=== PATIENT | female | born 1990 | race African-American/Black ===

== ENCOUNTER 2017-08-19 20:14 | Emergency (ER) | payer OTHER, BC ==
[2017-08-19] MEDS: oxyCODONE/APAP 5/325 1 TAB TABLET PO (21:07)
== END 2017-08-19 21:50 | disposition home or self-care (01) ==
LOC: ER 20:14
DX: S43.402A Unspecified sprain of left shoulder joint, initial encounter (principal); W17.89XA Other fall from one level to another, initial encounter; Y93.89 Activity, other specified; Y99.8 Other external cause status; Y92.89 Other specified places as the place of occurrence of the external cause
CPT/HCPCS: 73030; 99284

== ENCOUNTER → 2017-09-10 | Outpatient (CLI) | payer BC | END | disposition home or self-care (01) | LOC: KCIC MRI 08:31 | DX: M75.82 Other shoulder lesions, left shoulder (principal); R60.0 Localized edema | CPT/HCPCS: 73221 ==

== ENCOUNTER 2021-06-01 12:17 | Emergency (ER) | payer SELFPAY ==
[~2021-06-01] VITALS: Ht 165.1 cm; Wt 72.2 kg
[~2021-06-01 12:17] MED LIST: AMOX1TAB61 PO; HYDR-3164 PO; IBUP-1060 PO; METO10TA81 PO
[2021-06-01 12:28] VITALS: BP 132/69
[2021-06-01] MEDS ORDERED: IBUPROFEN 200 MG TABLET. PO ONE (12:30)
--- NOTE | 2021-06-01 12:30 | PHYS DOC ---
Past Medical History Past Medical History: No Pertinent History Past Surgical History: No Surgical History Smoking Status: Never Smoker Alcohol Use: None Drug Use: None General Adult EDM: Chief Complaint: LOWER EXT PAIN HPI: HPI: Patient is a 31 year old female who presents with right foot/ankle pain. 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 No issues during the class. No specific injury. Approximately 1 hour following her class started having pain. Worse with weightbearing. Worse with movement of the ankle. Points to the area of the talus for the area of most pain. Has tried ice and Tylenol. Review of Systems: Review of Systems: Constitutional: Denies fever or chills. [] HENT: Denies nasal congestion or sore throat. [] Respiratory: Denies cough or shortness of breath. [] Musculoskeletal: Reports right foot/ankle pain Integument: Denies rash. [] Heart Score: C/O Chest Pain: No Allergies: Allergies: Allergies Coded Allergies Type Severity Reaction Last Updated Verified No Known Allergies Allergy Unknown 10/19/15 Yes Physical Exam: PE: Constitutional: Well developed, well nourished, no acute distress, non-toxic appearance. [] HENT: Normocephalic, atraumatic Cardiovascular:Heart rate regular rhythm, no murmur [] Lungs & Thorax: Regular work of breathing Skin: Warm, dry, no erythema, no rash. [] Extremities: Right ankle with point tenderness over the talus. Pain with LA OM/AROM of the ankle. She is able to fully range ankle, albeit with pain. No tenderness over the distal malleoli. No tenderness over the calcaneus, midfoot, metatarsals, or phalanges. No significant edema. Mild redness where icepack was in place. Neurologic: Alert and oriented X 3, normal motor function, normal sensory function, no focal deficits noted. [] EKG: EKG: [] Radiology/Procedures: Radiology/Procedures: [] Impression: [facility] [address] [place] [address] IMAGING REPORT Signed PATIENT: DORIS OVALLE ACCOUNT: [id number] : 1990 LOCATION: ER AGE: 31 SEX: F EXAM STATUS: REG ER ORD. PHYSICIAN: SHELLY JONES MD REASON: talar pain, aggravated in dance class PROCEDURE: FOOT RIGHT 3V Study: 1. XR EXAM OF ANKLE_RIGHT 3VIEWS 2. XR FOOT_RIGHT 3 VIEWS Indication: Talar pain. Comparison: 05/26/2019 Findings: Right ankle: Symmetric ankle mortise. Intact malleoli. Unremarkable talar dome. Maintained ankle joint space height. Unremarkable soft tissues. Right foot: Chronic ossific fragment at the dorsum of the talonavicular joint. Maintained alignment at the subtalar joint. No coalition. Tiny Achilles insertion enthesophyte. No radiographic evidence for a stress fracture. Small multipartite os peroneum. Maintained joint spaces. There may be mild hallux valgus but a ssessment is limited without weightbearing. Impression: Right ankle and right foot: No acute osseous abnormality or significant arthrosis. Electronically signed by: YAMILE LARSON MD (06/01/2021 1:10 PM) [id number] DICTATED and SIGNED BY: YAMILE LARSON MD DATE: 06/01/21 [id number] 0 Course & Med Decision Making: Course & Med Decision Making Pertinent Labs and Imaging studies reviewed. 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 Pain seems to be located to tenderness over the talus. Plain films of the foot/ankle were negative. Given location low suspicion for lisfranc or other occult fracture. Given HENRRY wrap and crutches. Tylenol/ibuprofen and PCP f/u. Trang Disclaimer: Trang Disclaimer: This electronic medical record was generated, in whole or in part, using a voice recognition dictation system. Departure Departure Impression: Primary Impression: Right ankle pain Disposition: HOME / SELF CARE / HOMELESS Condition: STABLE Referrals: CRISS RHODES SOLE PAINTER (PCP) Schedule an appointment if you are still having pain on Thursday. Patient Instructions: Ankle Sprain Additional Instructions: For pain tylenol and ibuprofen are best used on a schedule. Please alternate between the two. -Tylenol 1000 mg every 6 hours (do not exceed 4000 mg in one day) -Ibuprofen 400 mg every 6 hours. Take with food. Do not take for more than 1 week. Please keep the ankle wrapped with an Henrry bandage. Use crutches as needed. As soon as you feel like you can bear weight you can start to do this. Please follow-up with your PCP if your symptoms persist. SHELLY JONES MD Jun 01, 2021 12:30
--- NOTE | 2021-06-01 13:12 | RAD ---
Study: 1. XR EXAM OF ANKLE_RIGHT 3VIEWS 2. XR FOOT_RIGHT 3 VIEWS Indication: Talar pain. Comparison: 05/26/2019 Findings: Right ankle: Symmetric ankle mortise. Intact malleoli. Unremarkable talar dome. Maintained ankle joint space heigh t. Unremarkable soft tissues. Right foot: Chronic ossific fragment at the dorsum of the talonavicular joint. Maintained alignment at the subtal ar joint. No coalition. Tiny Achilles insertion enthesophyte. No radiographic evidence for a stress f racture. Small multipartite os peroneum. Maintained joint spaces. There may be mild hallux valgus but assessment is limited without weightbearing. Impression: Right ankle and right foot: No acute osseous abnormality or significant arthrosis. Electronically signed by: YAMILE LARSON MD (06/01/2021 1:10 PM) [id number]
== END 2021-06-01 13:13 | disposition home or self-care (01) ==
LOC: ER 12:17
DX: M25.571 Pain in right ankle and joints of right foot (principal)
CPT/HCPCS: 73610; 73630; 99284

== ENCOUNTER 2021-08-01 09:05 | Inpatient (IN) | payer SELFPAY ==
[~2021-08-01] VITALS: Ht 165.1 cm; Wt 79.2 kg
[2021-08-01] MEDS ORDERED: IV NORMAL SALINE 1000ML BAG 1,000 ML IV ONE (09:30)
--- NOTE | 2021-08-01 09:30 | PHYS DOC ---
Past Medical History Past Medical History: No Pertinent History Past Surgical History: No Surgical History Smoking Status: Never Smoker Alcohol Use: None Drug Use: None Adult General Chief Complaint Chief Complaint: ABDOMINAL PAIN HPI HPI Patient is a 31 year old female presenting to the emergency department for evaluation of abdominal pain fevers chills nausea vomiting and dysuria. She says for the past 2 weeks she has had abdominal pain and dysuria and has been taking Azo but she felt her symptoms were not getting better and presented to the urgent care today and reportedly they checked her urine and it was normal and told her she needs to come to the emergency department to be evaluated for appendicitis. Patient says her fever was 102 this morning. Her emesis is nonbloody nonbilious and she denies any diarrhea. The abdominal pain is diffuse worse on the right side and crampy with no radiation. She denies any vaginal bleeding or vaginal discharge. She denies any prior abdominal surgeries and is unsure if she is . She is in no acute distress with normal vital signs. Review of Systems Review of Systems Constitutional: + fever, chills [] Eyes: Denies change in visual acuity, redness, or eye pain [] HENT: Denies nasal congestion or sore throat [] Respiratory: Denies cough or shortness of breath [] Cardiovascular: No additional information not addressed in HPI [] GI: + abdominal pain, nausea, vomiting. No bloody stools or diarrhea [] : + dysuria, hematuria [] Musculoskeletal: Denies back pain or joint pain [] Integument: Denies rash or skin lesions [] Neurologic: Denies headache, focal weakness or sensory changes [] All other systems were reviewed and found to be within normal limits, except as documented in this note. Current Medications Current Medications Current Medications Medications (Trade) Dose Ordered Sig/Hortencia Start Time Stop Time Status Last Admin Dose Admin Ceftriaxone Sodium (Rocephin) 2 gm 1X ONCE 08/01/21 12:00 08/01/21 12:01 DC 08/01/21 12:01 2 GM Info (CONTRAST GIVEN -- Rx MONITORING) 1 each PRN DAILY PRN 08/01/21 11:00 08/03/21 10:59 Iohexol (Omnipaque 300 Mg/ml) 75 ml 1X ONCE 08/01/21 11:00 08/01/21 11:01 DC 08/01/21 10:55 75 ML Ketorolac Tromethamine (Toradol 15mg Vial) 15 mg 1X ONCE 08/01/21 12:00 08/01/21 12:03 DC 08/01/21 12:16 15 MG Morphine Sulfate (Morphine Sulfate) 4 mg PRN Q2HR PRN 08/01/21 12:15 08/02/21 12:14 Ondansetron HCl (Zofran) 4 mg PRN Q8HRS PRN 08/01/21 12:15 08/02/21 12:14 Sodium Chloride 1,000 ml @ 1,000 mls/hr 1X ONCE 08/01/21 09:30 08/01/21 10:29 DC 08/01/21 09:33 1,000 MLS/HR Allergies Allergies Allergies Coded Allergies Type Severity Reaction Last Updated Verified No Known Allergies Allergy Unknown 06/01/21 Yes Physical Exam Physical Exam Constitutional: Well developed, well nourished, no acute distress, non-toxic appearance. [] HENT: Normocephalic, atraumatic, bilateral external ears normal, oropharynx moist, no oral exudates, nose normal. [] Eyes: PERRLA, EOMI, conjunctiva normal, no discharge. [] Neck: Normal range of motion, no tenderness, supple, no stridor. [] Cardiovascular:Heart rate regular rhythm, no murmur [] Lungs & Thorax: Bilateral breath sounds clear to auscultation [] Abdomen: Bowel sounds normal, soft, positive diffuse right-sided abdominal tenderness to palpation worse in the right upper quadrant with no rebound or guarding. Skin: Warm, dry, no erythema, no rash. [] Back: No tenderness, no CVA tenderness. [] Extremities: No tenderness, no cyanosis, no clubbing, ROM intact, no edema. [] Neurologic: Alert and oriented X 3, normal motor function, normal sensory function, no focal deficits noted. [] Current Patient Data Vital Signs Vital Signs Date Time Temp Pulse Resp B/P (MAP) Pulse Ox O2 Delivery O2 Flow Rate FiO2 08/01/21 10:44 82 18 127/70 (89) 100 Room Air 08/01/21 09:15 98.4 98.4 Lab Values Laboratory Tests Test 08/01/21 09:30 08/01/21 10:59 White Blood Count 20.5 x10^3/uL (4.0-11.0) H Red Blood Count 4.33 x10^6/uL (3.50-5.40) Hemoglobin 12.4 g/dL (12.0-15.5) Hematocrit 38.5 % (36.0-47.0) Mean Corpuscular Volume 89 fL (79-100) Mean Corpuscular Hemoglobin 29 pg (25-35) Mean Corpuscular Hemoglobin Concent 32 g/dL (31-37) Red Cell Distribution Width 13.2 % (11.5-14.5) Platelet Count 286 x10^3/uL (140-400) Neutrophils (%) (Auto) 89 % (31-73) H Lymphocytes (%) (Auto) 4 % (24-48) L Monocytes (%) (Auto) 7 % (0-9) Eosinophils (%) (Auto) 0 % (0-3) Basophils (%) (Auto) 0 % (0-3) Neutrophils # (Auto) 18.3 x10^3/uL (1.8-7.7) H Lymphocytes # (Auto) 0.9 x10^3/uL (1.0-4.8) L Monocytes # (Auto) 1.4 x10^3/uL (0.0-1.1) H Eosinophils # (Auto) 0.0 x10^3/uL (0.0-0.7) Basophils # (Auto) 0.0 x10^3/uL (0.0-0.2) Segmented Neutrophils % 86 % (35-66) H Band Neutrophils % 5 % (0-9) Lymphocytes % 5 % (24-48) L Monocytes % 4 % (0-10) Platelet Estimate Adequate (ADEQUATE) Sodium Level 137 mmol/L (136-145) Potassium Level 3.5 mmol/L (3.5-5.1) Chloride Level 100 mmol/L (98-107) Carbon Dioxide Level 22 mmol/L (21-32) Anion Gap 15 (6-14) H Blood Urea Nitrogen 12 mg/dL (7-20) Creatinine 1.0 mg/dL (0.6-1.0) Estimated GFR (Cockcroft-Gault) 77.3 BUN/Creatinine Ratio 12 (6-20) Glucose Level 121 mg/dL (70-99) H Calcium Level 8.9 mg/dL (8.5-10.1) Total Bilirubin 1.1 mg/dL (0.2-1.0) H Aspartate Amino Transferase (AST) 14 U/L (15-37) L Alanine Aminotransferase (ALT) 13 U/L (14-59) L Alkaline Phosphatase 49 U/L (46-116) Total Protein 7.8 g/dL (6.4-8.2) Albumin 3.9 g/dL (3.4-5.0) Albumin/Globulin Ratio 1.0 (1.0-1.7) Lipase 53 U/L (73-393) L Serum Test, Qualitative Negative (NEG) Urine Collection Type Void Urine Color (Auto) Light yellow Urine Turbidity Hazy Urine pH (Auto) 6.0 (<5.0-8.0) Urine Specific [place] 1.013 (1.000-1.030) Urine Protein (Auto) Negative mg/dL (Negative) Urine Glucose (Auto)(UA) Negative mg/dL (Negative) Urine Ketones (Auto) 40 mg/dL (Negative) Urine Blood (Auto) Small (Negative) Urine Nitrite Negative (Negative) Urine Bilirubin (Auto) Negative (Negative) Urine Urobilinogen (Auto) Normal mg/dL (Normal) Urine Leukocyte Esterase (Auto) Large (Negative) Urine RBC 1-2 /HPF (0-2) Urine WBC >40 /HPF (0-4) Urine Squamous Epithelial Cells Few /LPF Urine Bacteria Few /HPF (0-FEW) Urine Mucus Slight /LPF Laboratory Tests 08/01/21 09:30 Laboratory Tests 08/01/21 09:30 EKG EKG [] Radiology/Procedures Radiology/Procedures [] Course & Med Decision Making Course & Med Decision Making I will check labs and imaging treat symptoms and reassess. Patient has findings of an infected kidney stone based off presentation and work-up as she has a 5 mm right UVJ stone and had a fever and has significant leukocytosis as well as large amount of white blood cells in her urine. 2 g of Rocephin have been ordered and urology has been consulted and Dr. Garrison reportedly well perform stent placement this afternoon. Patient has a normal blood pressure and is not in septic shock at this time. She is still able to ambulate to the bathroom with no difficulty. Dragon Disclaimer Dragon Disclaimer This electronic medical record was generated, in whole or in part, using a voice recognition dictation system. Departure Departure Impression: Primary Impression: Ureter, calculus Additional Impressions: Hydronephrosis of right kidney Leukocytosis UTI (urinary tract infection) Disposition: ADMITTED INPATIENT Admitting Physician: JEN Acuña) Condition: IMPROVED Referrals: CRISS RHODES VOLUNTEER PATIENT REPRESENTATIVE (PCP) Problem Qualifiers KAYLYNN NEGRETE DO Aug 01, 2021 09:30
[2021-08-01] MEDS: MORPHINE SULFATE 4 MG/ML INJ. IV PRN (09:34)
[2021-08-01 09:39] LABS: BASO % 0 % (0-3); EOS % 0 % (0-3); HEMATOCRIT 38.5 % (36.0-47.0); HEMOGLOBIN 12.4 g/dL (12.0-15.5); LYMPH # 0.9 x10^3/uL (1.0-4.8); LYMPH % 4 % (24-48); MEAN CORPUSCULAR HEMOGLOBIN 29 pg (25-35); MEAN CORPUSCULAR HGB CONC 32 g/dL (31-37); MEAN CORPUSCULAR VOLUME 89 fL (79-100); MONO # 1.4 x10^3/uL (0.0-1.1); MONO % 7 % (0-9); NEUT # 18.3 x10^3/uL (1.8-7.7); NEUT % 89 % (31-73); PLATELET COUNT 286 x10^3/uL (140-400); RED BLOOD COUNT 4.33 x10^6/uL (3.50-5.40); RED CELL DISTRIBUTION WIDTH 13.2 % (11.5-14.5); WHITE BLOOD COUNT 20.5 x10^3/uL (4.0-11.0)
[2021-08-01 09:51] LABS: CALCIUM 8.9 mg/dL (8.5-10.1); GFR 77.3; POTASSIUM 3.5 mmol/L (3.5-5.1)
[2021-08-01 09:57] LABS: ALBUMIN 3.9 g/dL (3.4-5.0); TOTAL BILIRUBIN 1.1 mg/dL (0.2-1.0); TOTAL PROTEIN 7.8 g/dL (6.4-8.2)
[2021-08-01] MEDS ORDERED: ONDANSETRON PF 4 MG/2 ML VIAL. IVP ONE ×2 (10:00→12:15)
[2021-08-01 10:19] LABS: PREG TEST PT QUAL NEGATIVE (NEG)
[2021-08-01] MEDS: IOHEXOL 300 MG/ML 100ML VIAL. IV ONE ×2 (10:55→16:44)
[2021-08-01] MEDS ORDERED: CONTRAST GIVEN. MC PRN (11:00)
[2021-08-01 11:18] LABS: % BANDS 5 % (0-9); % LYMPHS 5 % (24-48); % MONOS 4 % (0-10); % SEGS 86 % (35-66); PLT ESTIMATE ADEQUATE (ADEQUATE)
[2021-08-01 11:28] LABS: BACTERIA,URINE FEW /HPF (0-FEW); WBC,URINE >40 /HPF (0-4)
--- NOTE | 2021-08-01 11:28 | RAD ---
EXAMINATION: CT ABDOMEN+PELVIS W CLINICAL HISTORY: RUQ and RLQ abdominal pain. TECHNIQUE: CT of the abdomen and pelvis was performed using standard technique, scanning from just ab ove the dome of the diaphragm to the symphysis pubis following administration of intravenous contrast . CT Dose Reduction Employed: One or more of the following individualized dose reduction techniques wer e utilized for this examination: 1. Automated exposure control 2. Adjustment of the mA and/or kV ac cording to patient size 3. Use of iterative reconstruction technique. COMPARISON: None FINDINGS: Visualized heart and lungs unremarkable. Small area of hypoattenuation in the hepatic parenchyma along the anterior falciform ligament, likely focal steatosis. Gallbladder, pancreas, spleen, and adrenal glands unremarkable. 5 mm calculus at the right ureterovesical junction with mild hydroureteronephrosis and renal edema as well as mild to moderate perinephric and periureteral stranding. Multiple additional small nonobstru ctive right renal calculi and a few punctate nonobstructive left renal calculi. Mildly filled urinary bladder. At least 3 uterine lesions measuring up to 4.8 cm, likely fibroids. 3. 4 cm hypoenhancing lesion in the right adnexa, most likely an ovarian cyst. Left ovary unremarkable o n limited evaluation. Mild fluid in the rectouterine fossa, likely reactive. No bowel dilation or definite wall thickening. Appendix within normal limits. No abdominal aortic or iliac artery aneurysm. No evidence of acute osseous abnormality. IMPRESSION: 5 mm calculus right ureterovesical junction with mild hydroureteronephrosis and associated reactive c hanges. Additional bilateral nonobstructive nephrolithiasis. Myomatous uterus. Probable 3.4 cm right ovarian cyst. Electronically signed by: Torrey Garcia DO (08/01/2021 11:26 AM) [id number]
[2021-08-01] MEDS ORDERED: cefTRIAXone IV Push 1 GM VIAL. IVP ONE (12:00)
[2021-08-01] MEDS ORDERED: KETOROLAC 15 MG/ML VIAL. IVP ONE (12:00)
[2021-08-01] MEDS ORDERED: MORPHINE SULFATE 4 MG/ML INJ. IVP PRN (12:15)
[2021-08-01] MEDS ORDERED: ONDANSETRON PF 4 MG/2 ML VIAL. IVP PRN (12:15)
--- NOTE | 2021-08-01 13:36 | PDOC2 ---
UROLOGY CONSULT DOS: DATE: 08/01/21 TIME: 13:31 Reason for Consult: UTI, kidney stone 31F admitted to the hospital for abdominal pain and fever. Patient states that she has had persistent right lower quadrant abdominal pain over the last 2 weeks. She went to urgent care and was noted to have a 102 degree fever and referred to the emergency department. CT imaging in the emergency department shows a right-sided 5 mm obstructing UVJ stone. Urine is concerning for infection. She has a white blood cell count of 20.5. Her pain is primarily located to the right flank and right lower quadrant described as waxing and waning. Nothing is made the pain better or worse. She denies any chronic medical history or previous interventions. She is having some mild dysuria. Denies gross hematuria. She does not take any anticoagulation. Her last meal was last night and she did drink some water early this morning. She has been n.p.o. over the last several hours ROS Constitutional: Denies fevers, chills, weakness Cardiovascular: Denies chest pain, palpitations Respiratory: Denies shortness of breath, wheezing, dyspnea on exertion GI: +abdominal pain, nausea, -vomiting :+ dysuria, -frequency, urgency, hematuria, urinary retention, +flank pain Skin: Denies rash, bruising Musculoskeletal: Denies extremity pain, extremity edema Psychiatric: Denies stress, anxiety Past Surgical History: No pertinent history Current Medications Current Medications Ondansetron HCl (Zofran) 4 mg 1X ONCE IVP Last administered on 08/01/21at 09:33; Start 08/01/21 at 10:00; Stop 08/01/21 at 10:01; Status DC Morphine Sulfate (Morphine Sulfate) 4 mg 1X PRN IV PAIN Last administered on 08/01/21at 09:34; Start 08/01/21 at 09:30 Sodium Chloride 1,000 ml @ 1,000 mls/hr 1X ONCE IV Last administered on 08/01/21at 09:33; Start 08/01/21 at 09:30; Stop 08/01/21 at 10:29; Status DC Iohexol (Omnipaque 300 Mg/ml) 75 ml 1X ONCE IV Last administered on 08/01/21at 10:55; Start 08/01/21 at 11:00; Stop 08/01/21 at 11:01; Status DC Info (CONTRAST GIVEN -- Rx MONITORING) 1 each PRN DAILY PRN MC SEE COMMENTS; Start 08/01/21 at 11:00; Stop 08/03/21 at 10:59 Ceftriaxone Sodium (Rocephin) 2 gm 1X ONCE IVP Last administered on 08/01/21at 12:01; Start 08/01/21 at 12:00; Stop 08/01/21 at 12:01; Status DC Ketorolac Tromethamine (Toradol 15mg Vial) 15 mg 1X ONCE IVP Last administered on 08/01/21at 12:16; Start 08/01/21 at 12:00; Stop 08/01/21 at 12:03; Status DC Ondansetron HCl (Zofran) 4 mg 1X ONCE IVP Last administered on 08/01/21at 12:17; Start 08/01/21 at 12:15; Stop 08/01/21 at 12:16; Status DC Ondansetron HCl (Zofran) 4 mg PRN Q8HRS PRN IVP NAUSEA/VOMITING; Start 08/01/21 at 12:15; Stop 08/02/21 at 12:14 Morphine Sulfate (Morphine Sulfate) 4 mg PRN Q2HR PRN IVP PAIN; Start 08/01/21 at 12:15; Stop 08/02/21 at 12:14 Active Scripts Active Ibuprofen 800 Mg Tablet 800 Mg PO PRN Q6HRS PRN [place] 5-325 Tablet (Acetaminophen/Hydrocodone Bitart) 1 Each Tablet 1 Tab PO BID 3 Days Augmentin 875-125 Tablet (Amoxicillin/Potassium Clav) 1 Each Tablet 1 Tab PO BID Reglan (Metoclopramide Hcl) 10 Mg Tablet 10 Tab PO Q8HRS PRN Allergies: Coded Allergies: No Known Allergies (Verified Allergy, Unknown, 06/01/21) Physical Examination GENERAL: awake, alert, oriented SKIN: warm, dry RESPIRATORY: Aerating well, symmetrical expansion GI: Soft, right lower quadrant tender to palpation, no guarding, no rebound : Normal anatomy, no lesions, right CVA tenderness MUSCULOSKELETAL: Moves all extremities, no edema NEURO: No gross abnormalities PSYCHIATRIC: Normal mood, normal affect, pleasant DOES THIS PATIENT HAVE URINARY: No VITALS Vital Signs Date Time Temp Pulse Resp B/P (MAP) Pulse Ox O2 Delivery O2 Flow Rate FiO2 08/01/21 11:35 96 18 123/73 (90) 100 Room Air 08/01/21 09:15 98.4 98.4 Labs Laboratory Tests Test 08/01/21 09:30 08/01/21 10:59 White Blood Count 20.5 x10^3/uL (4.0-11.0) Red Blood Count 4.33 x10^6/uL (3.50-5.40) Hemoglobin 12.4 g/dL (12.0-15.5) Hematocrit 38.5 % (36.0-47.0) Mean Corpuscular Volume 89 fL (79-100) Mean Corpuscular Hemoglobin 29 pg (25-35) Mean Corpuscular Hemoglobin Concent 32 g/dL (31-37) Red Cell Distribution Width 13.2 % (11.5-14.5) Platelet Count 286 x10^3/uL (140-400) Neutrophils (%) (Auto) 89 % (31-73) Lymphocytes (%) (Auto) 4 % (24-48) Monocytes (%) (Auto) 7 % (0-9) Eosinophils (%) (Auto) 0 % (0-3) Basophils (%) (Auto) 0 % (0-3) Neutrophils # (Auto) 18.3 x10^3/uL (1.8-7.7) Lymphocytes # (Auto) 0.9 x10^3/uL (1.0-4.8) Monocytes # (Auto) 1.4 x10^3/uL (0.0-1.1) Eosinophils # (Auto) 0.0 x10^3/uL (0.0-0.7) Basophils # (Auto) 0.0 x10^3/uL (0.0-0.2) Segmented Neutrophils % 86 % (35-66) Band Neutrophils % 5 % (0-9) Lymphocytes % 5 % (24-48) Monocytes % 4 % (0-10) Platelet Estimate Adequate (ADEQUATE) Sodium Level 137 mmol/L (136-145) Potassium Level 3.5 mmol/L (3.5-5.1) Chloride Level 100 mmol/L (98-107) Carbon Dioxide Level 22 mmol/L (21-32) Anion Gap 15 (6-14) Blood Urea Nitrogen 12 mg/dL (7-20) Creatinine 1.0 mg/dL (0.6-1.0) Estimated GFR (Cockcroft-Gault) 77.3 BUN/Creatinine Ratio 12 (6-20) Glucose Level 121 mg/dL (70-99) Calcium Level 8.9 mg/dL (8.5-10.1) Total Bilirubin 1.1 mg/dL (0.2-1.0) Aspartate Amino Transf (AST/SGOT) 14 U/L (15-37) Alanine Aminotransferase (ALT/SGPT) 13 U/L (14-59) Alkaline Phosphatase 49 U/L (46-116) Total Protein 7.8 g/dL (6.4-8.2) Albumin 3.9 g/dL (3.4-5.0) Albumin/Globulin Ratio 1.0 (1.0-1.7) Lipase 53 U/L (73-393) Serum Test, Qualitative Negative (NEG) Urine Collection Type Void Urine Color (Auto) Light yellow Urine Turbidity Hazy Urine pH (Auto) 6.0 (<5.0-8.0) Urine Specific [place] 1.013 (1.000-1.030) Urine Protein (Auto) Negative mg/dL (Negative) Urine Glucose (Auto)(UA) Negative mg/dL (Negative) Urine Ketones (Auto) 40 mg/dL (Negative) Urine Blood (Auto) Small (Negative) Urine Nitrite Negative (Negative) Urine Bilirubin (Auto) Negative (Negative) Urine Urobilinogen (Auto) Normal mg/dL (Normal) Urine Leukocyte Esterase (Auto) Large (Negative) Urine RBC 1-2 /HPF (0-2) Urine WBC >40 /HPF (0-4) Urine Squamous Epithelial Cells Few /LPF Urine Bacteria Few /HPF (0-FEW) Urine Mucus Slight /LPF Laboratory Tests Test 08/01/21 09:30 08/01/21 10:59 White Blood Count 20.5 x10^3/uL (4.0-11.0) Red Blood Count 4.33 x10^6/uL (3.50-5.40) Hemoglobin 12.4 g/dL (12.0-15.5) Hematocrit 38.5 % (36.0-47.0) Mean Corpuscular Volume 89 fL (79-100) Mean Corpuscular Hemoglobin 29 pg (25-35) Mean Corpuscular Hemoglobin Concent 32 g/dL (31-37) Red Cell Distribution Width 13.2 % (11.5-14.5) Platelet Count 286 x10^3/uL (140-400) Neutrophils (%) (Auto) 89 % (31-73) Lymphocytes (%) (Auto) 4 % (24-48) Monocytes (%) (Auto) 7 % (0-9) Eosinophils (%) (Auto) 0 % (0-3) Basophils (%) (Auto) 0 % (0-3) Neutrophils # (Auto) 18.3 x10^3/uL (1.8-7.7) Lymphocytes # (Auto) 0.9 x10^3/uL (1.0-4.8) Monocytes # (Auto) 1.4 x10^3/uL (0.0-1.1) Eosinophils # (Auto) 0.0 x10^3/uL (0.0-0.7) Basophils # (Auto) 0.0 x10^3/uL (0.0-0.2) Segmented Neutrophils % 86 % (35-66) Band Neutrophils % 5 % (0-9) Lymphocytes % 5 % (24-48) Monocytes % 4 % (0-10) Platelet Estimate Adequate (ADEQUATE) Sodium Level 137 mmol/L (136-145) Potassium Level 3.5 mmol/L (3.5-5.1) Chloride Level 100 mmol/L (98-107) Carbon Dioxide Level 22 mmol/L (21-32) Anion Gap 15 (6-14) Blood Urea Nitrogen 12 mg/dL (7-20) Creatinine 1.0 mg/dL (0.6-1.0) Estimated GFR (Cockcroft-Gault) 77.3 BUN/Creatinine Ratio 12 (6-20) Glucose Level 121 mg/dL (70-99) Calcium Level 8.9 mg/dL (8.5-10.1) Total Bilirubin 1.1 mg/dL (0.2-1.0) Aspartate Amino Transf (AST/SGOT) 14 U/L (15-37) Alanine Aminotransferase (ALT/SGPT) 13 U/L (14-59) Alkaline Phosphatase 49 U/L (46-116) Total Protein 7.8 g/dL (6.4-8.2) Albumin 3.9 g/dL (3.4-5.0) Albumin/Globulin Ratio 1.0 (1.0-1.7) Lipase 53 U/L (73-393) Serum Test, Qualitative Negative (NEG) Urine Collection Type Void Urine Color (Auto) Light yellow Urine Turbidity Hazy Urine pH (Auto) 6.0 (<5.0-8.0) Urine Specific [place] 1.013 (1.000-1.030) Urine Protein (Auto) Negative mg/dL (Negative) Urine Glucose (Auto)(UA) Negative mg/dL (Negative) Urine Ketones (Auto) 40 mg/dL (Negative) Urine Blood (Auto) Small (Negative) Urine Nitrite Negative (Negative) Urine Bilirubin (Auto) Negative (Negative) Urine Urobilinogen (Auto) Normal mg/dL (Normal) Urine Leukocyte Esterase (Auto) Large (Negative) Urine RBC 1-2 /HPF (0-2) Urine WBC >40 /HPF (0-4) Urine Squamous Epithelial Cells Few /LPF Urine Bacteria Few /HPF (0-FEW) Urine Mucus Slight /LPF Assessment/Plan --Infected right-sided ureteral stone CT imaging showing 5 mm right obstructing UVJ stone. Urinalysis concerning for infection. She is febrile with a leukocytosis. Her blood pressure is currently stable and she is in no acute distress. No history of kidney stones Discussed stone management options and due to the infection as well as unstable lab work and fever, will plan to take her to the operating room for a cystoscopy and right-sided stent placement. Risk explained including bleeding, infection, injury to organs, complications of anesthesia, etc. She understands the risk and will get written consent. She has been n.p.o. for the last 5 hours. Surgery is scheduled for [address] Landa. 2 g Ancef ordered preoperatively. Patient will require definitive stone management after culture specific antibiotics x 2 weeks. Patient does not have insurance so it may be best to keep her in the hospital for the next few days until her urine can become sterile and then will be able to laser the stone. We will discuss this with Dr. Landa for stone management planning. Urology will follow. JULIANA ARAUZ Aug 01, 2021 13:36
--- NOTE | 2021-08-01 13:52 | PDOC1 ---
History and Physical Date of Service: DOS: DATE: 08/01/21 TIME: 13:48 Chief Complaint: Chief Complain: abd pain History of Present Illness: HPI: Patient is a 31 year old female presenting to the emergency department for evaluation of abdominal pain fevers chills nausea vomiting and dysuria. She says for the past 2 weeks she has had abdominal pain and dysuria and has been taking Azo but she felt her symptoms were not getting better and presented to the urgent care today and reportedly they checked her urine and it was normal and told her she needs to come to the emergency department to be evaluated for appendicitis. Patient says her fever was 102 this morning. Her emesis is nonbloody nonbilious and she denies any diarrhea. The abdominal pain is diffuse worse on the right side and crampy with no radiation. She denies any vaginal bleeding or vaginal discharge. She denies any prior abdominal surgeries and is unsure if she is . She is in no acute distress with normal vital signs. Past Medical/Surgical History: PMH/PSH: Past Medical History: No Pertinent History Past Surgical History: No Surgical History Smoking Status: Never Smoker Alcohol Use: None Drug Use: None Allergies: Allergies: Coded Allergies: No Known Allergies (Verified Allergy, Unknown, 06/01/21) Family History: Family History: none known Current Medications: Current Medications Current Medications Ondansetron HCl (Zofran) 4 mg 1X ONCE IVP Last administered on 08/01/21at 09:33; Start 08/01/21 at 10:00; Stop 08/01/21 at 10:01; Status DC Morphine Sulfate (Morphine Sulfate) 4 mg 1X PRN IV PAIN Last administered on 08/01/21at 09:34; Start 08/01/21 at 09:30 Sodium Chloride 1,000 ml @ 1,000 mls/hr 1X ONCE IV Last administered on 08/01/21at 09:33; Start 08/01/21 at 09:30; Stop 08/01/21 at 10:29; Status DC Iohexol (Omnipaque 300 Mg/ml) 75 ml 1X ONCE IV Last administered on 08/01/21at 10:55; Start 08/01/21 at 11:00; Stop 08/01/21 at 11:01; Status DC Info (CONTRAST GIVEN -- Rx MONITORING) 1 each PRN DAILY PRN MC SEE COMMENTS; Start 08/01/21 at 11:00; Stop 08/03/21 at 10:59 Ceftriaxone Sodium (Rocephin) 2 gm 1X ONCE IVP Last administered on 08/01/21at 12:01; Start 08/01/21 at 12:00; Stop 08/01/21 at 12:01; Status DC Ketorolac Tromethamine (Toradol 15mg Vial) 15 mg 1X ONCE IVP Last administered on 08/01/21at 12:16; Start 08/01/21 at 12:00; Stop 08/01/21 at 12:03; Status DC Ondansetron HCl (Zofran) 4 mg 1X ONCE IVP Last administered on 08/01/21at 12:17; Start 08/01/21 at 12:15; Stop 08/01/21 at 12:16; Status DC Ondansetron HCl (Zofran) 4 mg PRN Q8HRS PRN IVP NAUSEA/VOMITING; Start 08/01/21 at 12:15; Stop 08/02/21 at 12:14 Morphine Sulfate (Morphine Sulfate) 4 mg PRN Q2HR PRN IVP PAIN; Start 08/01/21 at 12:15; Stop 08/02/21 at 12:14 Cefazolin Sodium/ Dextrose 50 ml @ 100 mls/hr 1X PREOP PRN IV PRIOR TO PROCEDURE; Start 08/02/21 at 06:00; Stop 08/02/21 at 18:00 Active Scripts Active Ibuprofen 800 Mg Tablet 800 Mg PO PRN Q6HRS PRN [place] 5-325 Tablet (Acetaminophen/Hydrocodone Bitart) 1 Each Tablet 1 Tab PO BID 3 Days Augmentin 875-125 Tablet (Amoxicillin/Potassium Clav) 1 Each Tablet 1 Tab PO BID Reglan (Metoclopramide Hcl) 10 Mg Tablet 10 Tab PO Q8HRS PRN ROS: Review of Systems Review of System Less known HPI 14 point review of systems is negative Physical Exam: Vital Signs: Vital Signs Date Time Temp Pulse Resp B/P (MAP) Pulse Ox O2 Delivery O2 Flow Rate FiO2 08/01/21 11:35 96 18 123/73 (90) 100 Room Air 08/01/21 09:15 98.4 98.4 Physcial Exam: GEN: No apparent distress. Alert and oriented HEENT: Normal cephalic, atraumatic, external auditory canals are patent EYES: Extraocular muscles are intact, pupil are equally round and reactive to light and accommodation MUSCULOSKELETAL: Well developed , well nourished, good range of motion ENDOCRINE: No thyromegaly was palpated LYMPHATICS: No cervical chain or axillary nodes were noted HEMATOPOIETIC: No bruising NECK: Supple, no JVD, no thyromegaly was noted LUNGS: Clear to auscultation in all lung [place] without rhonchi or wheezing HEART: RRR, S!, S2 present. Peripheral pulses intact, no obvious murmurs not ed ABDOMEN: Soft, nontender. Positive bowel sounds, no organomegaly, normal bowel sounds EXTREMITIES: Without clubbing, cyanosis, or edema. Pedal pulses intact. Negative Homans sign NEUROLOGIC: Normal speech and tone. A&O x 3, moves all extremities, no obvious focal deficits PSYCHIATRIC: Normal affect, normal mood. Stable SKIN: No ulcerations or rashes, good skin turgor, no jaundice VASCULAR: Good capillary refill, neurovascular bundle appears to be intact Labs: Labs: Laboratory Tests Test 08/01/21 09:30 08/01/21 10:59 White Blood Count 20.5 x10^3/uL (4.0-11.0) Red Blood Count 4.33 x10^6/uL (3.50-5.40) Hemoglobin 12.4 g/dL (12.0-15.5) Hematocrit 38.5 % (36.0-47.0) Mean Corpuscular Volume 89 fL (79-100) Mean Corpuscular Hemoglobin 29 pg (25-35) Mean Corpuscular Hemoglobin Concent 32 g/dL (31-37) Red Cell Distribution Width 13.2 % (11.5-14.5) Platelet Count 286 x10^3/uL (140-400) Neutrophils (%) (Auto) 89 % (31-73) Lymphocytes (%) (Auto) 4 % (24-48) Monocytes (%) (Auto) 7 % (0-9) Eosinophils (%) (Auto) 0 % (0-3) Basophils (%) (Auto) 0 % (0-3) Neutrophils # (Auto) 18.3 x10^3/uL (1.8-7.7) Lymphocytes # (Auto) 0.9 x10^3/uL (1.0-4.8) Monocytes # (Auto) 1.4 x10^3/uL (0.0-1.1) Eosinophils # (Auto) 0.0 x10^3/uL (0.0-0.7) Basophils # (Auto) 0.0 x10^3/uL (0.0-0.2) Segmented Neutrophils % 86 % (35-66) Band Neutrophils % 5 % (0-9) Lymphocytes % 5 % (24-48) Monocytes % 4 % (0-10) Platelet Estimate Adequate (ADEQUATE) Sodium Level 137 mmol/L (136-145) Potassium Level 3.5 mmol/L (3.5-5.1) Chloride Level 100 mmol/L (98-107) Carbon Dioxide Level 22 mmol/L (21-32) Anion Gap 15 (6-14) Blood Urea Nitrogen 12 mg/dL (7-20) Creatinine 1.0 mg/dL (0.6-1.0) Estimated GFR (Cockcroft-Gault) 77.3 BUN/Creatinine Ratio 12 (6-20) Glucose Level 121 mg/dL (70-99) Calcium Level 8.9 mg/dL (8.5-10.1) Total Bilirubin 1.1 mg/dL (0.2-1.0) Aspartate Amino Transf (AST/SGOT) 14 U/L (15-37) Alanine Aminotransferase (ALT/SGPT) 13 U/L (14-59) Alkaline Phosphatase 49 U/L (46-116) Total Protein 7.8 g/dL (6.4-8.2) Albumin 3.9 g/dL (3.4-5.0) Albumin/Globulin Ratio 1.0 (1.0-1.7) Lipase 53 U/L (73-393) Serum Test, Qualitative Negative (NEG) Urine Collection Type Void Urine Color (Auto) Light yellow Urine Turbidity Hazy Urine pH (Auto) 6.0 (<5.0-8.0) Urine Specific [place] 1.013 (1.000-1.030) Urine Protein (Auto) Negative mg/dL (Negative) Urine Glucose (Auto)(UA) Negative mg/dL (Negative) Urine Ketones (Auto) 40 mg/dL (Negative) Urine Blood (Auto) Small (Negative) Urine Nitrite Negative (Negative) Urine Bilirubin (Auto) Negative (Negative) Urine Urobilinogen (Auto) Normal mg/dL (Normal) Urine Leukocyte Esterase (Auto) Large (Negative) Urine RBC 1-2 /HPF (0-2) Urine WBC >40 /HPF (0-4) Urine Squamous Epithelial Cells Few /LPF Urine Bacteria Few /HPF (0-FEW) Urine Mucus Slight /LPF Laboratory Tests Test 08/01/21 09:30 08/01/21 10:59 White Blood Count 20.5 x10^3/uL (4.0-11.0) Red Blood Count 4.33 x10^6/uL (3.50-5.40) Hemoglobin 12.4 g/dL (12.0-15.5) Hematocrit 38.5 % (36.0-47.0) Mean Corpuscular Volume 89 fL (79-100) Mean Corpuscular Hemoglobin 29 pg (25-35) Mean Corpuscular Hemoglobin Concent 32 g/dL (31-37) Red Cell Distribution Width 13.2 % (11.5-14.5) Platelet Count 286 x10^3/uL (140-400) Neutrophils (%) (Auto) 89 % (31-73) Lymphocytes (%) (Auto) 4 % (24-48) Monocytes (%) (Auto) 7 % (0-9) Eosinophils (%) (Auto) 0 % (0-3) Basophils (%) (Auto) 0 % (0-3) Neutrophils # (Auto) 18.3 x10^3/uL (1.8-7.7) Lymphocytes # (Auto) 0.9 x10^3/uL (1.0-4.8) Monocytes # (Auto) 1.4 x10^3/uL (0.0-1.1) Eosinophils # (Auto) 0.0 x10^3/uL (0.0-0.7) Basophils # (Auto) 0.0 x10^3/uL (0.0-0.2) Segmented Neutrophils % 86 % (35-66) Band Neutrophils % 5 % (0-9) Lymphocytes % 5 % (24-48) Monocytes % 4 % (0-10) Platelet Estimate Adequate (ADEQUATE) Sodium Level 137 mmol/L (136-145) Potassium Level 3.5 mmol/L (3.5-5.1) Chloride Level 100 mmol/L (98-107) Carbon Dioxide Level 22 mmol/L (21-32) Anion Gap 15 (6-14) Blood Urea Nitrogen 12 mg/dL (7-20) Creatinine 1.0 mg/dL (0.6-1.0) Estimated GFR (Cockcroft-Gault) 77.3 BUN/Creatinine Ratio 12 (6-20) Glucose Level 121 mg/dL (70-99) Calcium Level 8.9 mg/dL (8.5-10.1) Total Bilirubin 1.1 mg/dL (0.2-1.0) Aspartate Amino Transf (AST/SGOT) 14 U/L (15-37) Alanine Aminotransferase (ALT/SGPT) 13 U/L (14-59) Alkaline Phosphatase 49 U/L (46-116) Total Protein 7.8 g/dL (6.4-8.2) Albumin 3.9 g/dL (3.4-5.0) Albumin/Globulin Ratio 1.0 (1.0-1.7) Lipase 53 U/L (73-393) Serum Test, Qualitative Negative (NEG) Urine Collection Type Void Urine Color (Auto) Light yellow Urine Turbidity Hazy Urine pH (Auto) 6.0 (<5.0-8.0) Urine Specific [place] 1.013 (1.000-1.030) Urine Protein (Auto) Negative mg/dL (Negative) Urine Glucose (Auto)(UA) Negative mg/dL (Negative) Urine Ketones (Auto) 40 mg/dL (Negative) Urine Blood (Auto) Small (Negative) Urine Nitrite Negative (Negative) Urine Bilirubin (Auto) Negative (Negative) Urine Urobilinogen (Auto) Normal mg/dL (Normal) Urine Leukocyte Esterase (Auto) Large (Negative) Urine RBC 1-2 /HPF (0-2) Urine WBC >40 /HPF (0-4) Urine Squamous Epithelial Cells Few /LPF Urine Bacteria Few /HPF (0-FEW) Urine Mucus Slight /LPF Assessment/Plan Assessment/Plan Infected kidney stone -Urology consulted proceed OR this afternoon for stent placement -Received Rocephin in ER preop Ancef. -We will have Zosyn start after surgery -No home meds resumed -We will follow up after surgery -Discussed with bedside RN -As needed pain control Justifications for Admission Other Justification DUKE BRAVO MD Aug 01, 2021 13:52
[2021-08-01 14:01] VITALS: BP 109/61
[2021-08-01] MEDS ORDERED: PROPOFOL 10 MG/ML (20ML) VIAL. IV ONE (15:20)
[2021-08-01] MEDS ORDERED: MIDAZOLAM HCL/PF 2 MG/2 ML VIAL. ONE (15:20)
[2021-08-01] MEDS ORDERED: LIDOCAINE 2% PF 5 ML VIAL. ONE (15:20)
[2021-08-01] MEDS ORDERED: fentaNYL PF VIAL 100 MCG/2 ML VIAL ONE (15:21)
[2021-08-01] MEDS ORDERED: SUCCINYLCHOLINE 200 MG/10 ML VIAL. ONE (15:21)
[2021-08-01] MEDS ORDERED: ROCURONIUM 50 MG/5 ML VIAL. ONE (15:21)
[2021-08-01] MEDS ORDERED: HYDROmorphone 2 MG/ML INJ. IVP PRN (15:45)
[2021-08-01] MEDS ORDERED: PROCHLORPERAZINE 10 MG/2 ML VIAL. IVP PRN (15:45)
[2021-08-01] MEDS ORDERED: MORPHINE SULFATE 2 MG/ML INJ. IVP PRN (15:45)
[2021-08-01] MEDS ORDERED: LIDOCAINE 2% TOPICAL JELLY 30GM TUBE. TP ONE (15:45)
[2021-08-01] MEDS ORDERED: fentaNYL PF VIAL 100 MCG/2 ML VIAL IVP PRN ×2 (15:45)
[2021-08-01] MEDS ORDERED: IV RINGERS,LACTATED 1000ML 1,000 ML IV SCH (15:45)
[2021-08-01] MEDS ORDERED: LIDOCAINE 2% TOPICAL JELLY 5GM TUBE. TP ONE (15:46)
[2021-08-01] MEDS ORDERED: IOHEXOL 300 MG/ML 50 ML VIAL. ONE (15:47)
[2021-08-01] MEDS ORDERED: LIDOCAINE 2% JELLY 6ML IN APPLICATOR. ONE (15:47)
[2021-08-01] MEDS ORDERED: ONDANSETRON PF 4 MG/2 ML VIAL. ONE (16:03)
--- NOTE | 2021-08-01 16:30 | NUR ---
PATIENT LEAVES THE UNIT PER BED FOR CYSTOSCOPY, EMOTIONAL SUPPORT GIVEN, PATIENTS MOTHER AT THE BEDSIDE.
--- NOTE | 2021-08-01 16:58 | PDOC4 ---
OPERATIVE NOTE Date: Date: Aug 01, 2021 Pre-Op Diagnosis: Right ureteral stone with UTI Post-Op Diagnosis: same Procedure Performed: Cystoscopy Right retrograde pyelogram Right ureteral stent placement Surgeon: Devon Landa MD Anesthesia Type: General Blood Loss: 0cc Specimans Obtained: none Findings: Right hydronephrosis Complications: none Operative Note: The patient was taken to the OR on the above date after informed consent. General anesthesia was administered and the patient placed in the dorsal lithotomy position. After the patient was prepped and draped cystoscopy was performed with a rigid cystoscope. This revealed no abnormalities. The right ureter was cannulated with a safety wire and the open ended catheter. 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 A 6fr x 26cm cm stent was then placed with the string in place in the lower pole. The bladder was drained and the patient tolerated the procedure well then taken to the recover in stable condition after being awoken from anesthesia. Plan: Return to the floor. Plan on continuing IV antibiotics and ureteroscopy on this admission if responding to antibiotics KESHAWN LANDA MD Aug 01, 2021 16:58
[2021-08-01] MEDS ORDERED: PROCHLORPERAZINE 10 MG/2 ML VIAL. ONE (17:13)
[2021-08-01] MEDS ORDERED: DEXAMETHASONE SOD PHOS 4 MG/ML VIAL ONE (17:13)
[2021-08-01] MEDS ORDERED: KETOROLAC 30 MG/ML VIAL. ONE (17:15)
[2021-08-01] MEDS ORDERED: DEXAMETHASONE SOD PHOS 4 MG/ML VIAL IVP ONE (17:30)
--- NOTE | 2021-08-01 17:50 | NUR ---
PATIENT RETURNS TO THE UNIT PER BED, MOTHER AT THE BEDSIDE, PATIENT DROWSY BUT EASILY AROUSED, COMFORT MEASURES GIVEN, VITALS ARE FOLLOWS; 107/53,98.2,1699%,92, WILL MONITOR.
[2021-08-01 19:00] VITALS: BP 101/65
[2021-08-02] MEDS: MORPHINE SULFATE 4 MG/ML INJ. IV PRN ×2 (02:58→08:55)
[2021-08-02 03:00] VITALS: BP 110/76
[2021-08-02 06:19] LABS: BASO % 0 % (0-3); EOS % 0 % (0-3); HEMATOCRIT 40.8 % (36.0-47.0); HEMOGLOBIN 12.7 g/dL (12.0-15.5); LYMPH # 0.6 x10^3/uL (1.0-4.8); LYMPH % 3 % (24-48); MEAN CORPUSCULAR HEMOGLOBIN 28 pg (25-35); MEAN CORPUSCULAR HGB CONC 31 g/dL (31-37); MEAN CORPUSCULAR VOLUME 91 fL (79-100); MONO # 0.4 x10^3/uL (0.0-1.1); MONO % 2 % (0-9); NEUT # 18.2 x10^3/uL (1.8-7.7); NEUT % 94 % (31-73); PLATELET COUNT 288 x10^3/uL (140-400); WHITE BLOOD COUNT 19.3 x10^3/uL (4.0-11.0)
[2021-08-02 06:33] LABS: CALCIUM 8.9 mg/dL (8.5-10.1); CREATININE 0.9 mg/dL (0.6-1.0); GFR 87.3; POTASSIUM 3.5 mmol/L (3.5-5.1)
[2021-08-02 07:00] VITALS: BP 123/67
[2021-08-02 11:00] VITALS: BP 129/76
--- NOTE | 2021-08-02 12:14 | PDOC ---
PROGRESS NOTE DATE OF SERVICE: DATE: 08/02/21 TIME: 12:11 CHIEF COMPLAINT: abd pain SUBJECTIVE: HPI: Patient states still having cramping. Noticing blood in her urine. Problems: Problems Medical Problems: (1) Hydronephrosis of right kidney Status: Acute (2) Leukocytosis Status: Acute (3) Ureter, calculus Status: Acute (4) UTI (urinary tract infection) Status: Acute OBJECTIVE: Vital Signs: Vital Signs Date Time Temp Pulse Resp B/P (MAP) Pulse Ox O2 Delivery O2 Flow Rate FiO2 08/02/21 11:00 98.0 69 18 129/76 (93) 100 98.0 08/02/21 08:55 Room Air 08/02/21 07:00 98.2 78 18 123/67 (85) 100 98.2 08/02/21 03:00 98.4 82 16 110/76 (87) 98 Room Air 98.4 08/02/21 02:58 18 100 Room Air 8.0 08/01/21 20:00 Room Air 08/01/21 19:00 98.2 83 20 101/65 (77) 100 98.2 08/01/21 17:28 100.7 96 23 113/67 97 Room Air 100.7 08/01/21 17:13 100 21 120/64 92 Room Air 08/01/21 16:57 99.0 113 26 127/67 92 Simple Mask 8.0 99.0 08/01/21 16:57 Mask 8.0 08/01/21 16:00 99.7 90 16 118/71 100 Room Air 99.7 08/01/21 14:01 98.2 94 20 109/61 (77) 95 Room Air 98.2 08/01/21 13:30 Room Air I & O Intake and Output 08/02/21 07:00 Intake Total 1950 ml Output Total 0 ml Balance 1950 ml Intake Oral 400 ml IV Total 1550 ml Output Urine Total 0 ml # Voids 3 PHYSICAL EXAM: Physical Exam: General: Pleasant, no acute distress, well groomed Eyes: conjunctiva anicteric, eyes full range of motion ENT: moist oral mucosa, normal dentition Neck: Trachea midline, no masses Respiratory: unlabored breathing, not using accessory muscles, no crackles or wheezes Cardiovascular: Regular rate and rhythm, no peripheral edema Abdomen: nontender, nondistended, no hepatosplenomegaly, no masses Skin: no rashes or skin lesions on visualized skin Psych: normal mood, affect. Alert and oriented x 3. LABS: Laboratory Tests Test 08/01/21 09:30 08/01/21 10:59 08/01/21 15:14 08/02/21 05:00 White Blood Count 20.5 x10^3/uL (4.0-11.0) 19.3 x10^3/uL (4.0-11.0) Red Blood Count 4.33 x10^6/uL (3.50-5.40) 4.50 x10^6/uL (3.50-5.40) Hemoglobin 12.4 g/dL (12.0-15.5) 12.7 g/dL (12.0-15.5) Hematocrit 38.5 % (36.0-47.0) 40.8 % (36.0-47.0) Mean Corpuscular Volume 89 fL (79-100) 91 fL (79-100) Mean Corpuscular Hemoglobin 29 pg (25-35) 28 pg (25-35) Mean Corpuscular Hemoglobin Concent 32 g/dL (31-37) 31 g/dL (31-37) Red Cell Distribution Width 13.2 % (11.5-14.5) 13.0 % (11.5-14.5) Platelet Count 286 x10^3/uL (140-400) 288 x10^3/uL (140-400) Neutrophils (%) (Auto) 89 % (31-73) 94 % (31-73) Lymphocytes (%) (Auto) 4 % (24-48) 3 % (24-48) Monocytes (%) (Auto) 7 % (0-9) 2 % (0-9) Eosinophils (%) (Auto) 0 % (0-3) 0 % (0-3) Basophils (%) (Auto) 0 % (0-3) 0 % (0-3) Neutrophils # (Auto) 18.3 x10^3/uL (1.8-7.7) 18.2 x10^3/uL (1.8-7.7) Lymphocytes # (Auto) 0.9 x10^3/uL (1.0-4.8) 0.6 x10^3/uL (1.0-4.8) Monocytes # (Auto) 1.4 x10^3/uL (0.0-1.1) 0.4 x10^3/uL (0.0-1.1) Eosinophils # (Auto) 0.0 x10^3/uL (0.0-0.7) 0.0 x10^3/uL (0.0-0.7) Basophils # (Auto) 0.0 x10^3/uL (0.0-0.2) 0.0 x10^3/uL (0.0-0.2) Segmented Neutrophils % 86 % (35-66) Band Neutrophils % 5 % (0-9) Lymphocytes % 5 % (24-48) Monocytes % 4 % (0-10) Platelet Estimate Adequate (ADEQUATE) Sodium Level 137 mmol/L (136-145) 136 mmol/L (136-145) Potassium Level 3.5 mmol/L (3.5-5.1) 3.5 mmol/L (3.5-5.1) Chloride Level 100 mmol/L (98-107) 102 mmol/L (98-107) Carbon Dioxide Level 22 mmol/L (21-32) 23 mmol/L (21-32) Anion Gap 15 (6-14) 11 (6-14) Blood Urea Nitrogen 12 mg/dL (7-20) 14 mg/dL (7-20) Creatinine 1.0 mg/dL (0.6-1.0) 0.9 mg/dL (0.6-1.0) Estimated GFR (Cockcroft-Gault) 77.3 87.3 BUN/Creatinine Ratio 12 (6-20) Glucose Level 121 mg/dL (70-99) 113 mg/dL (70-99) Calcium Level 8.9 mg/dL (8.5-10.1) 8.9 mg/dL (8.5-10.1) Total Bilirubin 1.1 mg/dL (0.2-1.0) Aspartate Amino Transf (AST/SGOT) 14 U/L (15-37) Alanine Aminotransferase (ALT/SGPT) 13 U/L (14-59) Alkaline Phosphatase 49 U/L (46-116) Total Protein 7.8 g/dL (6.4-8.2) Albumin 3.9 g/dL (3.4-5.0) Albumin/Globulin Ratio 1.0 (1.0-1.7) Lipase 53 U/L (73-393) Serum Test, Qualitative Negative (NEG) Urine Collection Type Void Urine Color (Auto) Light yellow Urine Turbidity Hazy Urine pH (Auto) 6.0 (<5.0-8.0) Urine Specific [place] 1.013 (1.000-1.030) Urine Protein (Auto) Negative mg/dL (Negative) Urine Glucose (Auto)(UA) Negative mg/dL (Negative) Urine Ketones (Auto) 40 mg/dL (Negative) Urine Blood (Auto) Small (Negative) Urine Nitrite Negative (Negative) Urine Bilirubin (Auto) Negative (Negative) Urine Urobilinogen (Auto) Normal mg/dL (Normal) Urine Leukocyte Esterase (Auto) Large (Negative) Urine RBC 1-2 /HPF (0-2) Urine WBC >40 /HPF (0-4) Urine Squamous Epithelial Cells Few /LPF Urine Bacteria Few /HPF (0-FEW) Urine Mucus Slight /LPF SARS-CoV-2 Antigen (Rapid) Negative (NEGATIVE) MEDICATIONS: Current Medications Medications (Trade) Dose Ordered Sig/Hortencia Start Time Stop Time Status Last Admin Dose Admin Cefazolin Sodium/ Dextrose 50 ml @ As Directed STK-MED ONCE 08/01/21 16:02 08/01/21 16:03 DC Ceftriaxone Sodium (Rocephin) 2 gm 1X ONCE 08/01/21 12:00 08/01/21 12:01 DC 08/01/21 12:01 2 GM Dexamethasone Sodium Phosphate (Decadron) 8 mg 1X ONCE 08/01/21 17:30 08/01/21 17:31 DC 08/01/21 17:18 8 MG Fentanyl Citrate (Fentanyl 2ml Vial) 50 mcg PRN Q5MIN PRN 08/01/21 15:45 08/01/21 22:00 DC Hydromorphone HCl (Dilaudid) 0.5 mg PRN Q10MIN PRN 08/01/21 15:45 08/01/21 22:00 DC Info (CONTRAST GIVEN -- Rx MONITORING) 1 each PRN DAILY PRN 08/01/21 11:00 08/03/21 10:59 Iohexol (Omnipaque 300 Mg/ml) 50 ml STK-MED ONCE 08/01/21 15:47 08/01/21 15:47 DC Ketorolac Tromethamine (Toradol 15mg Vial) 15 mg 1X ONCE 08/01/21 12:00 08/01/21 12:03 DC 08/01/21 12:16 15 MG Ketorolac Tromethamine (Toradol 30mg Vial) 30 mg STK-MED ONCE 08/01/21 17:15 08/01/21 17:15 DC Lidocaine HCl (Glydo (Lidocaine) Jelly) 6 luca STK-MED ONCE 08/01/21 15:47 08/01/21 15:48 DC 08/01/21 16:44 6 LUCA Lidocaine HCl (Lidocaine Pf 2% Vial) 5 ml STK-MED ONCE 08/01/21 15:20 08/01/21 15:20 DC Lidocaine HCl (Xylocaine 2% Topical 30gm Tube) 30 luca STK-MED ONCE 08/01/21 15:45 08/01/21 15:46 DC Lidocaine HCl (Xylocaine 2% Topical 5gm Tube) 5 luca STK-MED ONCE 08/01/21 15:46 08/01/21 15:47 DC Midazolam HCl (Versed) 2 mg STK-MED ONCE 08/01/21 15:20 08/01/21 15:21 DC Morphine Sulfate (Morphine Sulfate) 1 mg PRN Q10MIN PRN 08/01/21 15:45 08/01/21 22:00 DC Ondansetron HCl (Zofran) 4 mg STK-MED ONCE 08/01/21 16:03 08/01/21 16:03 DC Prochlorperazine Edisylate (Compazine) 10 mg STK-MED ONCE 08/01/21 17:13 08/01/21 17:13 DC Propofol (Diprivan) 200 mg STK-MED ONCE 08/01/21 15:20 08/01/21 15:20 DC Ringer's Solution 1,000 ml @ 30 mls/hr Q24H 08/01/21 15:45 08/02/21 03:44 DC 08/01/21 15:45 30 MLS/HR Rocuronium [place] (Zemuron) 50 mg STK-MED ONCE 08/01/21 15:21 08/01/21 15:21 DC Sodium Chloride 1,000 ml @ 1,000 mls/hr 1X ONCE 08/01/21 09:30 08/01/21 10:29 DC 08/01/21 09:33 1,000 MLS/HR Succinylcholine Chloride (Anectine) 200 mg STK-MED ONCE 08/01/21 15:21 08/01/21 15:21 DC ASSESSMENT & PLAN --Infected right-sided ureteral stone CT imaging showing 5 mm right obstructing UVJ stone. Urinalysis concerning for infection. She was febrile with a leukocytosis on admission. Her blood pressure was stable and she is in no acute distress. No history of kidney stones Will order rocephin to cover for possible UTI. Will add oxybutynin for stent pain. Taken to OR with Dr Landa 08/01 for right ureteral stent placement Plan to laser stone on Thursday as long as she is improving. Vitals stable at this point. WBC trending down. Afebrile since surgery. Discussed risks of procedure including but not limited to infection,bleeding,injury to organs and anesthesia. patient agreeable. Urology will follow. Problem List: Problems Medical Problems: (1) Hydronephrosis of right kidney Status: Acute (2) Leukocytosis Status: Acute (3) Ureter, calculus Status: Acute (4) UTI (urinary tract infection) Status: Acute MANUEL MCKEON APRN Aug 02, 2021 12:14
[2021-08-02] MEDS: OXYBUTYNIN CHLORIDE 5 MG TABLET PO SCH (13:00)
--- NOTE | 2021-08-02 13:07 | PDOC ---
[facility] PROGRESS NOTE Date of Service DOS: DATE: 08/02/21 TIME: 13:05 Chief Complaint Chief Complaint Infected kidney stone -Urology consulted proceed OR this afternoon for stent placement -Received Rocephin in ER preop Ancef. -We will have Zosyn start after surgery -No home meds resumed -We will follow up after surgery -Discussed with bedside RN -As needed pain control History of Present Illness History of Present Illness HPI: Patient is a 31 year old female presenting to the emergency department for evaluation of abdominal pain fevers chills nausea vomiting and dysuria. She says for the past 2 weeks she has had abdominal pain and dysuria and has been taking Azo but she felt her symptoms were not getting better and presented to the urgent care today and reportedly they checked her urine and it was normal and told her she needs to come to the emergency department to be evaluated for appendicitis. Patient says her fever was 102 this morning. Her emesis is nonbloody nonbilious and she denies any diarrhea. The abdominal pain is diffuse worse on the right side and crampy with no radiation. She denies any vaginal bleeding or vaginal discharge. She denies any prior abdominal surgeries and is unsure if she is . She is in no acute distress with normal vital signs. 07/31 Patient evaluated examined at bedside. based upon orders looks like going for lithotripsy Thursday. Continue current otherwise. Patient agreeable Vitals/I&O Vitals/I&O: Vital Signs Date Time Temp Pulse Resp B/P (MAP) Pulse Ox O2 Delivery O2 Flow Rate FiO2 08/02/21 11:00 98.0 69 18 129/76 (93) 100 98.0 08/02/21 08:55 Room Air 08/02/21 02:58 8.0 I & O 08/01/21 08/01/21 08/02/21 15:00 23:00 07:00 Intake Total 1000 ml 950 ml Output Total 0 ml Balance 1000 ml 950 ml Physical Exam General: Alert, Oriented X3, Cooperative Heart: Regular rate, Normal S1, Normal S2 Lungs: Clear Extremities: No clubbing, No edema, Normal pulses Skin: No significant lesion Labs Labs: Laboratory Tests Test 08/01/21 15:14 08/02/21 05:00 SARS-CoV-2 Antigen (Rapid) Negative (NEGATIVE) White Blood Count 19.3 x10^3/uL (4.0-11.0) Red Blood Count 4.50 x10^6/uL (3.50-5.40) Hemoglobin 12.7 g/dL (12.0-15.5) Hematocrit 40.8 % (36.0-47.0) Mean Corpuscular Volume 91 fL (79-100) Mean Corpuscular Hemoglobin 28 pg (25-35) Mean Corpuscular Hemoglobin Concent 31 g/dL (31-37) Red Cell Distribution Width 13.0 % (11.5-14.5) Platelet Count 288 x10^3/uL (140-400) Neutrophils (%) (Auto) 94 % (31-73) Lymphocytes (%) (Auto) 3 % (24-48) Monocytes (%) (Auto) 2 % (0-9) Eosinophils (%) (Auto) 0 % (0-3) Basophils (%) (Auto) 0 % (0-3) Neutrophils # (Auto) 18.2 x10^3/uL (1.8-7.7) Lymphocytes # (Auto) 0.6 x10^3/uL (1.0-4.8) Monocytes # (Auto) 0.4 x10^3/uL (0.0-1.1) Eosinophils # (Auto) 0.0 x10^3/uL (0.0-0.7) Basophils # (Auto) 0.0 x10^3/uL (0.0-0.2) Sodium Level 136 mmol/L (136-145) Potassium Level 3.5 mmol/L (3.5-5.1) Chloride Level 102 mmol/L (98-107) Carbon Dioxide Level 23 mmol/L (21-32) Anion Gap 11 (6-14) Blood Urea Nitrogen 14 mg/dL (7-20) Creatinine 0.9 mg/dL (0.6-1.0) Estimated GFR (Cockcroft-Gault) 87.3 Glucose Level 113 mg/dL (70-99) Calcium Level 8.9 mg/dL (8.5-10.1) Assessment and Plan Assessmemt and Plan Problems Medical Problems: (1) Hydronephrosis of right kidney Status: Acute (2) Leukocytosis Status: Acute (3) Ureter, calculus Status: Acute (4) UTI (urinary tract infection) Status: Acute Comment Review of Relevant I have reviewed the following items ady (where applicable) has been applied. Medications: Current Medications Medications (Trade) Dose Ordered Sig/Hortencia Route PRN Reason Start Time Stop Time Status Last Admin Dose Admin Cefazolin Sodium/ Dextrose 50 ml @ 100 mls/hr 1X PREOP PRN IV PRIOR TO PROCEDURE 08/02/21 06:00 08/02/21 18:00 08/01/21 16:30 Ringer's Solution 1,000 ml @ 30 mls/hr Q24H IV 08/01/21 15:45 08/02/21 03:44 DC 08/01/21 15:45 Prochlorperazine Edisylate (Compazine) 5 mg PACU PRN PRN IVP NAUSEA, MRX1 08/01/21 15:45 08/01/21 22:00 DC 08/01/21 17:18 Lidocaine HCl (Glydo (Lidocaine) Jelly) 6 luca STK-MED ONCE .ROUTE 08/01/21 15:47 08/01/21 15:48 DC 08/01/21 16:44 Dexamethasone Sodium Phosphate (Decadron) 8 mg 1X ONCE IVP 08/01/21 17:30 08/01/21 17:31 DC 08/01/21 17:18 Justifications for Admission Other Justification DUKE BRAVO MD Aug 02, 2021 13:07
--- NOTE | 2021-08-02 14:30 | NUR ---
SS following for discharge planning. SS reviewed pt chart and discussed with pt RN. Pt is from home and is currently on room air. Pt on IV Rocephin. Pt had procedure with Urology on 08/01/2021. Self pay. Med Assist following. Discharge plan is currently to home when medically ready for discharge. SS will continue to follow for discharge planning.
[2021-08-02 15:00] VITALS: BP 116/75
[2021-08-02] MEDS: oxyCODONE/APAP 5/325 1 TAB TABLET PO PRN ×2 (15:42→19:15)
[2021-08-02] MEDS: cefTRIAXone IV Push 1 GM VIAL. IVP SCH (16:54)
[2021-08-02 19:00] VITALS: BP 99/60
[2021-08-02 23:00] VITALS: BP 94/59
[2021-08-03 03:05] VITALS: BP 110/68
[2021-08-03 07:00] VITALS: BP 114/65
[2021-08-03] MEDS: OXYBUTYNIN CHLORIDE 5 MG TABLET PO SCH (09:06)
[2021-08-03] MEDS: oxyCODONE/APAP 5/325 1 TAB TABLET PO PRN (09:07)
[2021-08-03] MEDS ORDERED: PHENAZOPYRIDINE 200 MG TABLET. PO PRN (09:45)
--- NOTE | 2021-08-03 10:47 | PDOC ---
PROGRESS NOTE DATE OF SERVICE: DATE: 08/03/21 TIME: 10:45 CHIEF COMPLAINT: abd pain SUBJECTIVE: ROS: ROS: RESPIRATORY: Shortness of breath denies. Cough denies. UROLOGY: blood in urine, frequency, urgency HPI: Patient continues to endorse bladder pain with complaint of hematuria, dysuria, frequency, urgency. Patient appears more comfortable compared to yesterday. Problems: Problems Medical Problems: (1) Hydronephrosis of right kidney Status: Acute (2) Leukocytosis Status: Acute (3) Ureter, calculus Status: Acute (4) UTI (urinary tract infection) Status: Acute OBJECTIVE: Vital Signs: Vital Signs Date Time Temp Pulse Resp B/P (MAP) Pulse Ox O2 Delivery O2 Flow Rate FiO2 08/03/21 09:07 19 100 Room Air 08/03/21 07:00 99.9 87 16 114/65 (81) 100 99.9 08/03/21 03:05 98.2 87 18 110/68 (82) 99 Room Air 98.2 08/02/21 23:00 98.2 75 20 94/59 (71) 96 Room Air 98.2 08/02/21 20:00 Room Air 08/02/21 19:45 Room Air 08/02/21 19:15 94 Room Air 08/02/21 19:00 98.3 75 18 99/60 (73) 95 Room Air 98.3 08/02/21 16:20 19 94 Room Air 08/02/21 15:42 20 94 Room Air 08/02/21 15:00 99.2 85 18 116/75 (89) 100 99.2 08/02/21 11:00 98.0 69 18 129/76 (93) 100 98.0 PHYSICAL EXAM: Physical Exam: General: Pleasant, no acute distress, well groomed Eyes: conjunctiva anicteric, eyes full range of motion ENT: moist oral mucosa, normal dentition Neck: Trachea midline, no masses Respiratory: unlabored breathing, not using accessory muscles, no crackles or wheezes Abdomen: nontender, nondistended, no hepatosplenomegaly, no masses Skin: no rashes or skin lesions on visualized skin Psych: normal mood, affect. Alert and oriented x 3. LABS: Laboratory Tests Test 08/01/21 09:30 08/01/21 10:59 08/01/21 15:14 08/02/21 05:00 White Blood Count 20.5 x10^3/uL (4.0-11.0) 19.3 x10^3/uL (4.0-11.0) Red Blood Count 4.33 x10^6/uL (3.50-5.40) 4.50 x10^6/uL (3.50-5.40) Hemoglobin 12.4 g/dL (12.0-15.5) 12.7 g/dL (12.0-15.5) Hematocrit 38.5 % (36.0-47.0) 40.8 % (36.0-47.0) Mean Corpuscular Volume 89 fL (79-100) 91 fL (79-100) Mean Corpuscular Hemoglobin 29 pg (25-35) 28 pg (25-35) Mean Corpuscular Hemoglobin Concent 32 g/dL (31-37) 31 g/dL (31-37) Red Cell Distribution Width 13.2 % (11.5-14.5) 13.0 % (11.5-14.5) Platelet Count 286 x10^3/uL (140-400) 288 x10^3/uL (140-400) Neutrophils (%) (Auto) 89 % (31-73) 94 % (31-73) Lymphocytes (%) (Auto) 4 % (24-48) 3 % (24-48) Monocytes (%) (Auto) 7 % (0-9) 2 % (0-9) Eosinophils (%) (Auto) 0 % (0-3) 0 % (0-3) Basophils (%) (Auto) 0 % (0-3) 0 % (0-3) Neutrophils # (Auto) 18.3 x10^3/uL (1.8-7.7) 18.2 x10^3/uL (1.8-7.7) Lymphocytes # (Auto) 0.9 x10^3/uL (1.0-4.8) 0.6 x10^3/uL (1.0-4.8) Monocytes # (Auto) 1.4 x10^3/uL (0.0-1.1) 0.4 x10^3/uL (0.0-1.1) Eosinophils # (Auto) 0.0 x10^3/uL (0.0-0.7) 0.0 x10^3/uL (0.0-0.7) Basophils # (Auto) 0.0 x10^3/uL (0.0-0.2) 0.0 x10^3/uL (0.0-0.2) Segmented Neutrophils % 86 % (35-66) Band Neutrophils % 5 % (0-9) Lymphocytes % 5 % (24-48) Monocytes % 4 % (0-10) Platelet Estimate Adequate (ADEQUATE) Sodium Level 137 mmol/L (136-145) 136 mmol/L (136-145) Potassium Level 3.5 mmol/L (3.5-5.1) 3.5 mmol/L (3.5-5.1) Chloride Level 100 mmol/L (98-107) 102 mmol/L (98-107) Carbon Dioxide Level 22 mmol/L (21-32) 23 mmol/L (21-32) Anion Gap 15 (6-14) 11 (6-14) Blood Urea Nitrogen 12 mg/dL (7-20) 14 mg/dL (7-20) Creatinine 1.0 mg/dL (0.6-1.0) 0.9 mg/dL (0.6-1.0) Estimated GFR (Cockcroft-Gault) 77.3 87.3 BUN/Creatinine Ratio 12 (6-20) Glucose Level 121 mg/dL (70-99) 113 mg/dL (70-99) Calcium Level 8.9 mg/dL (8.5-10.1) 8.9 mg/dL (8.5-10.1) Total Bilirubin 1.1 mg/dL (0.2-1.0) Aspartate Amino Transf (AST/SGOT) 14 U/L (15-37) Alanine Aminotransferase (ALT/SGPT) 13 U/L (14-59) Alkaline Phosphatase 49 U/L (46-116) Total Protein 7.8 g/dL (6.4-8.2) Albumin 3.9 g/dL (3.4-5.0) Albumin/Globulin Ratio 1.0 (1.0-1.7) Lipase 53 U/L (73-393) Serum Test, Qualitative Negative (NEG) Urine Collection Type Void Urine Color (Auto) Light yellow Urine Turbidity Hazy Urine pH (Auto) 6.0 (<5.0-8.0) Urine Specific [place] 1.013 (1.000-1.030) Urine Protein (Auto) Negative mg/dL (Negative) Urine Glucose (Auto)(UA) Negative mg/dL (Negative) Urine Ketones (Auto) 40 mg/dL (Negative) Urine Blood (Auto) Small (Negative) Urine Nitrite Negative (Negative) Urine Bilirubin (Auto) Negative (Negative) Urine Urobilinogen (Auto) Normal mg/dL (Normal) Urine Leukocyte Esterase (Auto) Large (Negative) Urine RBC 1-2 /HPF (0-2) Urine WBC >40 /HPF (0-4) Urine Squamous Epithelial Cells Few /LPF Urine Bacteria Few /HPF (0-FEW) Urine Mucus Slight /LPF SARS-CoV-2 Antigen (Rapid) Negative (NEGATIVE) Microbiology 08/01/21 Urine Culture - Final, Complete Citrobacter Koseri MEDICATIONS: Current Medications Medications (Trade) Dose Ordered Sig/Hortencia Start Time Stop Time Status Last Admin Dose Admin Cefazolin Sodium/ Dextrose 50 ml @ As Directed STK-MED ONCE 08/01/21 16:02 08/01/21 16:03 DC Ceftriaxone Sodium (Rocephin) 1 gm Q24H 08/02/21 13:00 08/02/21 16:54 1 GM Dexamethasone Sodium Phosphate (Decadron) 8 mg 1X ONCE 08/01/21 17:30 08/01/21 17:31 DC 08/01/21 17:18 8 MG Fentanyl Citrate (Fentanyl 2ml Vial) 50 mcg PRN Q5MIN PRN 08/01/21 15:45 08/01/21 22:00 DC Hydromorphone HCl (Dilaudid) 0.5 mg PRN Q10MIN PRN 08/01/21 15:45 08/01/21 22:00 DC Info (CONTRAST GIVEN -- Rx MONITORING) 1 each PRN DAILY PRN 08/01/21 11:00 08/03/21 10:59 Iohexol (Omnipaque 300 Mg/ml) 50 ml STK-MED ONCE 08/01/21 15:47 08/01/21 15:47 DC Ketorolac Tromethamine (Toradol 15mg Vial) 15 mg 1X ONCE 08/01/21 12:00 08/01/21 12:03 DC 08/01/21 12:16 15 MG Ketorolac Tromethamine (Toradol 30mg Vial) 30 mg STK-MED ONCE 08/01/21 17:15 08/01/21 17:15 DC Lidocaine HCl (Glydo (Lidocaine) Jelly) 6 luca STK-MED ONCE 08/01/21 15:47 08/01/21 15:48 DC 08/01/21 16:44 6 LUCA Lidocaine HCl (Lidocaine Pf 2% Vial) 5 ml STK-MED ONCE 08/01/21 15:20 08/01/21 15:20 DC Lidocaine HCl (Xylocaine 2% Topical 30gm Tube) 30 luca STK-MED ONCE 08/01/21 15:45 08/01/21 15:46 DC Lidocaine HCl (Xylocaine 2% Topical 5gm Tube) 5 luca STK-MED ONCE 08/01/21 15:46 08/01/21 15:47 DC Midazolam HCl (Versed) 2 mg STK-MED ONCE 08/01/21 15:20 08/01/21 15:21 DC Morphine Sulfate (Morphine Sulfate) 1 mg PRN Q10MIN PRN 08/01/21 15:45 08/01/21 22:00 DC Ondansetron HCl (Zofran) 4 mg STK-MED ONCE 08/01/21 16:03 08/01/21 16:03 DC Oxybutynin Chloride (Ditropan) 5 mg DAILY 08/02/21 12:30 08/03/21 09:06 5 MG Oxycodone/ Acetaminophen (Percocet 5/325) 1 tab PRN Q4HRS PRN 08/02/21 12:30 08/03/21 09:07 1 TAB Phenazopyridine HCl (Pyridium) 200 mg PRN TID PRN 08/03/21 09:45 Potassium Chloride (Klor-Con) 20 meq 1X ONCE 08/03/21 11:30 08/03/21 11:31 Prochlorperazine Edisylate (Compazine) 10 mg STK-MED ONCE 08/01/21 17:13 08/01/21 17:13 DC Propofol (Diprivan) 200 mg STK-MED ONCE 08/01/21 15:20 08/01/21 15:20 DC Ringer's Solution 1,000 ml @ 30 mls/hr Q24H 08/01/21 15:45 08/02/21 03:44 DC 08/01/21 15:45 30 MLS/HR Rocuronium [place] (Zemuron) 50 mg STK-MED ONCE 08/01/21 15:21 08/01/21 15:21 DC Sodium Chloride 1,000 ml @ 1,000 mls/hr 1X ONCE 08/01/21 09:30 08/01/21 10:29 DC 08/01/21 09:33 1,000 MLS/HR Succinylcholine Chloride (Anectine) 200 mg STK-MED ONCE 08/01/21 15:21 08/01/21 15:21 DC ASSESSMENT & PLAN --Infected right-sided ureteral stone CT imaging showing 5 mm right obstructing UVJ stone. Urinalysis concerning for infection. She was febrile with a leukocytosis on admission. Her blood pressure was stable and she was in no acute distress. No history of kidney stones Rocephin ordered. Urine culture positive and sensitive to this. Recommend 2 week course of culture sensitive antibiotic at discharged. oxybutynin for stent pain. Pyridium prn for bladder pain Taken to OR with Dr Landa 08/01 for right ureteral stent placement Plan to laser stone on Thursday as long as she is improving. Vitals stable at this point. WBC trending down. Awaiting todays labs. Discussed risks of procedure including but not limited to infection,bleeding,injury to organs and anesthesia. patient agreeable. NPO at midnight. Ancef preop. Consent. D/w Dr Landa. Problem List: Problems Medical Problems: (1) Hydronephrosis of right kidney Status: Acute (2) Leukocytosis Status: Acute (3) Ureter, calculus Status: Acute (4) UTI (urinary tract infection) Status: Acute MANUEL MCKEON MAGAZINE KEEPER Aug 03, 2021 10:47
[2021-08-03 11:00] VITALS: BP 112/63
[2021-08-03] MEDS ORDERED: POLYETHYLENE GLYCOL 3350 17 GM PACKET. PO ONE (11:30)
[2021-08-03] MEDS ORDERED: POTASSIUM CHLORIDE 20 MEQ TABLET.ER. PO ONE (11:30)
--- NOTE | 2021-08-03 11:35 | PDOC ---
[facility] PROGRESS NOTE Date of Service DOS: DATE: 08/03/21 TIME: 11:32 Chief Complaint Chief Complaint Infected kidney stone pyelonephritis equivalent urolithiasis UTI, citrobacter sepsis on 08/01, fever , tachycardia, leukocytosis History of Present Illness History of Present Illness HPI: Patient is a 31 year old female presenting to the emergency department for evaluation of abdominal pain fevers chills nausea vomiting and dysuria. She says for the past 2 weeks she has had abdominal pain and dysuria and has been taking Azo but she felt her symptoms were not getting better and presented to the urgent care today and reportedly they checked her urine and it was normal and told her she needs to come to the emergency department to be evaluated for appendicitis. Patient says her fever was 102 this morning. Her emesis is nonbloody nonbilious and she denies any diarrhea. The abdominal pain is diffuse worse on the right side and crampy with no radiation. She denies any vaginal bleeding or vaginal discharge. She denies any prior abdominal surgeries and is unsure if she is . She is in no acute distress with normal vital signs. 07/31 Patient evaluated examined at bedside. based upon orders looks like going for lithotripsy Thursday. Continue current otherwise. Patient agreeable 08/02. last planned for tomrorow, still in pain, 12/04 pain and not moving due to pain, incrase pain meds, schedule the Azo, add colace and miralax, has not stooled, left flank oain Vitals/I&O Vitals/I&O: Vital Signs Date Time Temp Pulse Resp B/P (MAP) Pulse Ox O2 Delivery O2 Flow Rate FiO2 08/03/21 09:07 19 100 Room Air 08/03/21 07:00 99.9 87 114/65 (81) 99.9 08/02/21 08:00 8.0 Physical Exam General: Alert, Oriented X3, Cooperative Heart: Regular rate, Normal S1, Normal S2 Lungs: Clear Extremities: No clubbing, No edema, Normal pulses Skin: No significant lesion Assessment and Plan Assessmemt and Plan Problems Medical Problems: (1) Hydronephrosis of right kidney Status: Acute (2) Leukocytosis Status: Acute (3) Ureter, calculus Status: Acute (4) UTI (urinary tract infection) Status: Acute Comment Review of Relevant I have reviewed the following items ady (where applicable) has been applied. Medications: Current Medications Medications (Trade) Dose Ordered Sig/Hortencia Route PRN Reason Start Time Stop Time Status Last Admin Dose Admin Ceftriaxone Sodium (Rocephin) 1 gm Q24H IVP 08/02/21 13:00 08/02/21 16:54 Oxybutynin Chloride (Ditropan) 5 mg DAILY PO 08/02/21 12:30 08/03/21 09:06 Oxycodone/ Acetaminophen (Percocet 5/325) 1 tab PRN Q4HRS PRN PO MILD TO MODERATE PAIN 08/02/21 12:30 08/03/21 09:07 Phenazopyridine HCl (Pyridium) 200 mg PRN TID PRN PO URINARY PAIN 08/03/21 09:45 08/03/21 11:28 DC 08/03/21 11:03 Potassium Chloride (Klor-Con) 20 meq 1X ONCE PO 08/03/21 11:30 08/03/21 11:31 DC 08/03/21 11:03 Justifications for Admission Other Justification THIERNO DARDEN MD Aug 03, 2021 11:35
[2021-08-03 11:46] LABS: BASO % 0 % (0-3); EOS % 0 % (0-3); HEMATOCRIT 36.9 % (36.0-47.0); HEMOGLOBIN 11.8 g/dL (12.0-15.5); LYMPH # 1.7 x10^3/uL (1.0-4.8); LYMPH % 16 % (24-48); MEAN CORPUSCULAR HEMOGLOBIN 29 pg (25-35); MEAN CORPUSCULAR HGB CONC 32 g/dL (31-37); MEAN CORPUSCULAR VOLUME 89 fL (79-100); MONO # 0.6 x10^3/uL (0.0-1.1); MONO % 6 % (0-9); NEUT % 78 % (31-73); PLATELET COUNT 261 x10^3/uL (140-400); RED BLOOD COUNT 4.14 x10^6/uL (3.50-5.40); RED CELL DISTRIBUTION WIDTH 12.9 % (11.5-14.5); WHITE BLOOD COUNT 10.4 x10^3/uL (4.0-11.0)
[2021-08-03 12:12] LABS: ALBUMIN 3.1 g/dL (3.4-5.0); ALBUMIN/GLOBULIN RATIO 0.8 (1.0-1.7); CALCIUM 8.3 mg/dL (8.5-10.1); GFR 77.3; POTASSIUM 3.2 mmol/L (3.5-5.1); TOTAL BILIRUBIN 0.5 mg/dL (0.2-1.0); TOTAL PROTEIN 6.9 g/dL (6.4-8.2)
[2021-08-03] MEDS: oxyCODONE/APAP 10/325 1 TAB TABLET PO PRN ×2 (12:57→20:13)
[2021-08-03] MEDS: cefTRIAXone IV Push 1 GM VIAL. IVP SCH (12:57)
[2021-08-03] MEDS: DOCUSATE SODIUM 100 MG CAPSULE. PO SCH (12:57)
[2021-08-03] MEDS ORDERED: fentaNYL PF VIAL 100 MCG/2 ML VIAL IVP ONE (13:45)
[2021-08-03 15:00] VITALS: BP 153/81
[2021-08-03] MEDS: PHENAZOPYRIDINE 200 MG TABLET. PO SCH ×2 (15:00→20:13)
[2021-08-03] MEDS: POTASSIUM CL 20MEQ D5-0.45NACL 1,000 ML IV SCH (15:00)
[2021-08-03 19:00] VITALS: BP 127/70
[2021-08-03 23:00] VITALS: BP 126/63
[2021-08-04] MEDS: POTASSIUM CL 20MEQ D5-0.45NACL 1,000 ML IV SCH (01:17)
[2021-08-04 03:00] VITALS: BP 109/69
[2021-08-04] MEDS ORDERED: IOHEXOL 300 MG/ML 50 ML VIAL. ONE (06:50)
[2021-08-04] MEDS ORDERED: PROPOFOL 10 MG/ML (20ML) VIAL. IV ONE (07:14)
[2021-08-04] MEDS ORDERED: LIDOCAINE 2% PF 5 ML VIAL. ONE (07:14)
[2021-08-04] MEDS ORDERED: DEXAMETHASONE SOD PHOS 4 MG/ML VIAL ONE (07:15)
[2021-08-04] MEDS ORDERED: ONDANSETRON PF 4 MG/2 ML VIAL. ONE (07:15)
[2021-08-04] MEDS ORDERED: fentaNYL PF VIAL 100 MCG/2 ML VIAL ONE (07:18)
[2021-08-04] MEDS ORDERED: MIDAZOLAM HCL/PF 2 MG/2 ML VIAL. ONE (07:59)
[2021-08-04] MEDS ORDERED: fentaNYL PF VIAL 100 MCG/2 ML VIAL IVP PRN ×2 (08:00)
[2021-08-04] MEDS ORDERED: PROCHLORPERAZINE 10 MG/2 ML VIAL. IVP PRN (08:00)
[2021-08-04] MEDS ORDERED: IV RINGERS,LACTATED 1000ML 1,000 ML IV SCH (08:00)
[2021-08-04] MEDS ORDERED: HYDROmorphone 2 MG/ML INJ. IVP PRN (08:00)
[2021-08-04] MEDS ORDERED: MORPHINE SULFATE 2 MG/ML INJ. IVP PRN (08:00)
[2021-08-04] MEDS ORDERED: ePHEDrine PF IN SALINE 50 MG/10 ML SYRINGE. IV ONE (08:17)
[2021-08-04] MEDS ORDERED: KETOROLAC 30 MG/ML VIAL. ONE (08:17)
--- NOTE | 2021-08-04 08:52 | PDOC4 ---
OPERATIVE NOTE Date: Date: Aug 04, 2021 Pre-Op Diagnosis: Right ureteral stone and kidney stone Post-Op Diagnosis: same Procedure Performed: Cystoscopy with right stent removal Right ureteroscopy Basket stone manipulation Surgeon: Devon Landa MD Anesthesia Type: General Blood Loss: 0cc Specimans Obtained: Right kidney stone Findings: Right kidney stone Complications: none Operative Note: The patient was taken to the OR on the above date after informed consent. General anesthesia was administered and the patient placed in the dorsal lithotomy position. After the patient was prepped and draped cystoscopy was performed with a rigid cystoscope. This revealed no abnormalities. The stent was grasped and removed. The Right ureter was cannulated with a safety wire and the semi rigid ureteroscopy revealed no stone in the distal ureter. I then assembled a flexible ureteroscope and inspected the entire upper collecting system. There were two stones a lower pole moiety that were basketed and removed. I inspected the upper pole and this revealed no stone. The ureter was inspected and no stones seen on antegrade inspection. A stent was not placed and limited manipulation and no dilation was needed to remove the stones The bladder was drained and the patient tolerated the procedure well then taken to the recover in stable condition after being awoken from anesthesia. Plan: Return to the floor. DC home later today if pain well controlled and remains afebrile. Continue oral antibiotics for 10 more days KESHAWN LANDA MD Aug 04, 2021 08:52
[2021-08-04] MEDS ORDERED: POLYETHYLENE GLYCOL 3350 17 GM PACKET. PO SCH (09:00)
[2021-08-04] MEDS: DOCUSATE SODIUM 100 MG CAPSULE. PO SCH (10:29)
[2021-08-04] MEDS: PHENAZOPYRIDINE 200 MG TABLET. PO SCH ×2 (10:29→13:50)
[2021-08-04] MEDS: OXYBUTYNIN CHLORIDE 5 MG TABLET PO SCH (10:30)
[2021-08-04] MEDS: oxyCODONE/APAP 10/325 1 TAB TABLET PO PRN (10:33)
[2021-08-04 11:00] VITALS: BP 106/62
[2021-08-04] MEDS ORDERED: CYCLOBENZAPRINE 10 MG TABLET. PO ONE (11:30)
[2021-08-04] MEDS ORDERED: fentaNYL PF VIAL 100 MCG/2 ML VIAL IVP ONE (11:30)
--- NOTE | 2021-08-04 12:00 | NUR ---
The patient underwent cystoscopy , ureteroscopy, basket removal of stone, removal of stent this morning. She was back on the unit via bed on room air, VSS, AOx4, no complaints of pain. Patient's mother at the bedside.
[2021-08-04] MEDS: cefTRIAXone IV Push 1 GM VIAL. IVP SCH (13:50)
[2021-08-04] MEDS ORDERED: POLY17PO52 PO (13:52)
[2021-08-04] MEDS ORDERED: PHEN-444 PO (13:52)
[2021-08-04] MEDS ORDERED: OXYB5TAB10 PO (13:52)
[2021-08-04] MEDS ORDERED: CIPR500T2 PO (13:53)
[2021-08-04] MEDS ORDERED: OXYC1TAB15 PO (13:54)
--- NOTE | 2021-08-04 14:03 | PDOC3 ---
Discharge Summary Visit Information Date of Admission: Aug 01, 2021 Date of Discharge: Aug 04, 2021 Final Diagnosis Infected kidney stone pyelonephritis equivalent urolithiasis UTI, citrobacter sepsis on 08/01, fever , tachycardia, leukocytosis Problems Medical Problems: (1) Hydronephrosis of right kidney Status: Acute (2) Leukocytosis Status: Acute (3) Ureter, calculus Status: Acute (4) UTI (urinary tract infection) Status: Acute Brief Hospital Course Allergies Allergies Coded Allergies Type Severity Reaction Last Updated Verified No Known Allergies Allergy Unknown 06/01/21 Yes Vital Signs Vital Signs Date Time Temp Pulse Resp B/P (MAP) Pulse Ox O2 Delivery O2 Flow Rate FiO2 08/04/21 12:00 17 99 Room Air 08/04/21 09:15 98.7 69 124/73 98.7 08/04/21 09:00 6.0 Lab Results Laboratory Tests Test 08/03/21 11:30 White Blood Count 10.4 x10^3/uL (4.0-11.0) Red Blood Count 4.14 x10^6/uL (3.50-5.40) Hemoglobin 11.8 g/dL (12.0-15.5) Hematocrit 36.9 % (36.0-47.0) Mean Corpuscular Volume 89 fL (79-100) Mean Corpuscular Hemoglobin 29 pg (25-35) Mean Corpuscular Hemoglobin Concent 32 g/dL (31-37) Red Cell Distribution Width 12.9 % (11.5-14.5) Platelet Count 261 x10^3/uL (140-400) Neutrophils (%) (Auto) 78 % (31-73) Lymphocytes (%) (Auto) 16 % (24-48) Monocytes (%) (Auto) 6 % (0-9) Eosinophils (%) (Auto) 0 % (0-3) Basophils (%) (Auto) 0 % (0-3) Neutrophils # (Auto) 8.0 x10^3/uL (1.8-7.7) Lymphocytes # (Auto) 1.7 x10^3/uL (1.0-4.8) Monocytes # (Auto) 0.6 x10^3/uL (0.0-1.1) Eosinophils # (Auto) 0.0 x10^3/uL (0.0-0.7) Basophils # (Auto) 0.0 x10^3/uL (0.0-0.2) Sodium Level 136 mmol/L (136-145) Potassium Level 3.2 mmol/L (3.5-5.1) Chloride Level 101 mmol/L (98-107) Carbon Dioxide Level 25 mmol/L (21-32) Anion Gap 10 (6-14) Blood Urea Nitrogen 14 mg/dL (7-20) Creatinine 1.0 mg/dL (0.6-1.0) Estimated GFR (Cockcroft-Gault) 77.3 BUN/Creatinine Ratio 14 (6-20) Glucose Level 98 mg/dL (70-99) Calcium Level 8.3 mg/dL (8.5-10.1) Total Bilirubin 0.5 mg/dL (0.2-1.0) Aspartate Amino Transf (AST/SGOT) 7 U/L (15-37) Alanine Aminotransferase (ALT/SGPT) 9 U/L (14-59) Alkaline Phosphatase 44 U/L (46-116) Total Protein 6.9 g/dL (6.4-8.2) Albumin 3.1 g/dL (3.4-5.0) Albumin/Globulin Ratio 0.8 (1.0-1.7) Brief Hospital Course Ms. Young is a 31 old female admit with acute abdominal pain fevers chills nausea vomiting and dysuria. fever, emesis here, renal stone, impaced with UTI, complicated, citrobacter, hopson sens, most sens to cipro, pt has no insurance, less expensive abx chosen Assessment Assessment 08/01, Dr. Landa, op note Right ureteral stone with UTI Cystoscopy Right retrograde pyelogram Right ureteral stent placement 08/04, Cystoscopy with right stent removal of Right ureteral stone and kidney stone Right ureteroscopy Basket stone manipulation Discharge Information Condition at Discharge: Improved Follow Up: Weeks Disposition/Orders: D/C to Home Scheduled Ciprofloxacin Hcl (Ciprofloxacin Hcl) 500 Mg Tablet, 1 TAB PO BID for UTI, for 10 Days, #20 Prescribed by: THIERNO DARDEN on 08/04/21 1353 Oxybutynin Chloride (Oxybutynin Chloride) 5 Mg Tablet, 5 MG PO DAILY for urologic, #30 Prescribed by: THIERNO DARDEN on 08/04/21 1352 Scheduled PRN Ibuprofen (Ibuprofen) 800 Mg Tablet, 800 MG PO PRN Q6HRS PRN for INFLAMMATION, #14 Prescribed by: FUNMILAYO BECKMAN PA-C on 08/19/177 Metoclopramide Hcl (Reglan) 10 Mg Tablet, 10 TAB PO Q8HRS PRN for HEADACHE, #30 Prescribed by: NOA GONZALEZ D.O. on 10/19/15 1348 Oxycodone/Apap 5-325 (Percocet 5-325 Mg Tablet ) 1 Each Tablet, 1 TAB PO Q4HRS PRN for PAIN MDD 3 Tablet(s), #22 Ref 0 Prescribed by: THIERNO DARDEN on 08/04/21 1356 Phenazopyridine Hcl (Phenazopyridine Hcl) 200 Mg Tablet, 200 MG PO TID PRN for uro pain, #30 Prescribed by: THIERNO DARDEN on 08/04/21 1352 Polyethylene Glycol 3350 (Polyethylene Glycol 3350) 17 Gm Powd.pack, 17 GM PO BID PRN for CONSTIPATION, #30 Prescribed by: THIERNO DARDEN on 08/04/21 1352 Discontinued Medications Amoxicillin/Potassium Clav (Augmentin 875-125 Tablet) 1 Each Tablet, 1 TAB PO BID, #14 Prescribed by: KAYLYNN LEVIN on 10/20/15 1612 Hydrocodone/Apap 5-325 (Hamel 5-325 Tablet) 1 Each Tablet, 1 TAB PO BID for 3 Days, #6 Prescribed by: FUNMILAYO BECKMAN PA-C on 08/19/177 Patient Instructions Patient Instructions 2 visits today face to face makred pain after surg, home with some pain meds, abx for 10 days, f/u uro 39 minutes Justicifation of Admission Dx: Justifications for Admission: Justification of Admission Dx: Yes (sepsis) THIERNO DARDEN MD Aug 04, 2021 14:03
--- NOTE | 2021-08-04 19:12 | NUR ---
Discharge Note: DORIS OVALLE [address] Discharge instructions and discharge home medications reviewed with patient and her mother, and a copy given. All questions have been answered and understanding verbalized. The following instructions and handouts were given: Home meds as directed. Keep hydrated Discussed diet for kidney stones and symptoms that needs to be called to the Dr. Follow up with urology as need. Follow up with PCP in weeks. Discontinued lines and drains: IV intact, no complications Patient discharged to [home with selfcare via wheelchair at 1520
--- NOTE | 2021-08-05 20:19 | PATHOLOGY ---
[facility] Accession Number: [id number] . 01 Material submitted: . kidney - RIGHT RENAL CALCULI. Modifiers: right . 01 Clinical history: . RIGHT OBSTRUCTING OVJ STONE CYSTOSCOPY, RIGHT URETEROSCOPY, RIGHT BASKET STONE, MANIPULATION, RIGHT URETERAL STENT REMOVAL FOR ANALYSIS . 02 Diagnosis: Right renal calculi: - The specimen is consistent with calculi. - The specimen is sent out for further processing. Report pending outside analysis with results to follow in an addendum. MBR 08/05/2021 1945 Local . 02 Electronically signed: . Evelin Dave MD, Pathologist NPI- [id number] . 01 Gross description: . The specimen is received without fixative, labeled "Carlos Alberto Young, right renal calculi". The specimen consists of a wilson-black stone-like tissue (0.3 x 0.3 x 0.3 cm). The specimen is forwarded to sendouts for further processing. ([place]; 08/05/2021) DKA/DKA 08/05/2021 1541 Local . 02 Pathologist provided ICD-10: N20.0 . 02 CPT . 069612 Specimen Comment: A courtesy copy of this report has been sent to [phone], [phone] Specimen Comment: [id number] Specimen Comment: Report sent to DR. BRAVO / DR BAZAN Specimen Comment: A duplicate report has been generated due to demographic updates. Performed at: 01 [facility] [address] [facility] [address], [place] [id number] MD Trip Vasques MD Phone: [phone] Performed at: 02 [facility] [address] [place], [place] [id number] MD Luke Ho MD Phone: [phone]
== END 2021-08-04 15:20 | disposition home or self-care (01) | DRG 854 ==
LOC: ER 09:05 → 5 NORTH 11:54
PROVIDERS: ADMIT Student in an Organized Health Care Education/Training Program; ATTEND Student in an Organized Health Care Education/Training Program
PROC: BT1D1ZZ Fluoroscopy of Right Kidney, Ureter and Bladder using Low Osmolar Contrast (ICD-10-PCS; 2021-08-01)
PROC: 0T768DZ Dilation of Right Ureter with Intraluminal Device, Via Natural or Artificial Opening Endoscopic (ICD-10-PCS; principal; 2021-08-01 16:15)
PROC: 0TP98DZ Removal of Intraluminal Device from Ureter, Via Natural or Artificial Opening Endoscopic (ICD-10-PCS; 2021-08-04)
PROC: 0TC08ZZ Extirpation of Matter from Right Kidney, Via Natural or Artificial Opening Endoscopic (ICD-10-PCS; 2021-08-04)
PROC: 0TJ98ZZ Inspection of Ureter, Via Natural or Artificial Opening Endoscopic (ICD-10-PCS; 2021-08-04)
DX: A41.9 Sepsis, unspecified organism (principal); N13.6 Pyonephrosis; B96.89 Other specified bacterial agents as the cause of diseases classified elsewhere; Z20.822 Contact with and (suspected) exposure to COVID-19
CPT/HCPCS: 36415; 74177; 76000; 80048; 80053; 81001; 83690; 84703; 85007; 85025; 87077; 87086; 87186; 87426; 88300; 96361; 96374; 96375; 96376; A4657; A4911; A4930; C1758; C1769; C2617; J0330; J0690; J0696; J0780; J1100; J1885; J2250; J2270; J2405; J2704; J3010; J3480; J7030; J7120; Q9967; 99285-25; G0378